=== PATIENT | male | born 1955 | race Caucasian/White ===

== ENCOUNTER 2021-02-02 12:05 | Emergency (ER) | payer MEDICARE, SELFPAY ==
--- NOTE | ~2021-02-02 | CT_ITS ---
EXAMINATION: CT brain wo con INDICATION: Confusion and memory loss COMPARISON: None TECHNIQUE: Standard unenhanced head CT. The dose-length product (DLP) was 681.00 mGy-cm. The mA was a djusted according to patient size. Iterative reconstruction technique was employed. FINDINGS: There is no intracranial hemorrhage, acute infarction, or abnormal mass lesion. The ventric les are normal. There is no abnormal mass effect or midline shift. The guo-white matter differentiat ion is normal. The basal cisterns are patent. The orbits are normal. There is essentially complete op acification of the frontal sinuses, sphenoid sinuses, right maxillary sinus, and the ethmoidal air ce lls. There is minimal opacification of left maxillary sinus. IMPRESSION: 1. No acute intracranial abnormality. 2. Pansinusitis. Reviewed, dictated and finalized at location A.
[2021-02-02 12:16] VITALS: BP 158/98; PULSE 96; RESP 16; TEMP 36.6; O2SAT 98
--- NOTE | 2021-02-02 12:19 | ECG_ITS ---
Measurements Intervals Patrick Rate: 86 P: 10 GA: 198 QRS: -10 QRSD: 104 T: 32 QT: 356 QTc: 428 Interpretive Statements SINUS RHYTHM INCOMPLETE RIGHT BUNDLE BRANCH BLOCK BORDERLINE ECG Electronically Signed On 02-03-2021 7:16:37 CDT by Juventino Gar D.O.
[2021-02-02 12:35] LABS: Basophils Absolute Auto 0.1 K/mm3 (0.0-0.1); Basophils Percent Auto 0.9 % (0.2-1.2); Eosinophils Absolute Auto 0.5 K/mm3 (0-0.3); Eosinophils Percent Auto 7.2 % (0-4.4); Hematocrit 44.7 % (42.0-52.0); Immature Granulocyte Absolute 0.02 K/mm3 (0.00-0.031); Immature Granulocyte Percent A 0.3 % (0-0.5); Lymphocytes Absolute Auto 2.15 K/mm3 (0.9-3.2); Lymphocytes Percent Auto 30.9 % (18.3-44.2); Mean Corpuscular HGB Conc 33.6 g/dl (32-36); Mean Corpuscular Hemoglobin 28.4 pg (26-34); Mean Corpuscular Volume 84.5 fl (80-100); Mean Platelet Volume 10.2 fl (7.4-10.4); Monocytes Absolute Auto 0.7 K/mm3 (0.1-0.6); Monocytes Percent Auto 9.4 % (2.6-8.5); Neutrophils Absolute Auto 3.6 K/mm3 (1.3-6.7); Neutrophils Percent Auto 51.3 % (45.5-73.1); Platelet Count Result 248 k/mm3 (150-375); Red Blood Count 5.29 M/mm3 (4.6-6.20); Red Cell Distribution Width 14.6 % (11.5-14.5)
[2021-02-02 12:50] LABS: Alanine Aminotransferase 18 U/L (4-50); Albumin Level 4.6 g/dL (3.5-5.1); Alkaline Phosphatase 55 U/L (38-126); Anion Gap 7 mmol/L (8-16); Aspartate Amino Transferase 35 U/L (17-59); Bilirubin,Total 1.1 mg/dL (0.2-1.3); Blood Urea Nitrogen 21 mg/dL (9-20); Calcium 10.1 mg/dL (8.4-10.2); Carbon Dioxide 29 mmol/L (22-30); Chloride 104 mmol/L (98-107); Estimated CRCL calculation 71 ml/min; Estimated Glomerular Filt Rate > 60; Glucose 108 mg/dL (75-110); Potassium 4.5 mmol/L (3.4-5.0); Sodium 140 mmol/L (137-145)
[2021-02-02 13:37] VITALS: BP 154/94; PULSE 81; RESP 21; O2SAT 98
--- NOTE | 2021-02-02 13:42 | PC.NURSE ---
Ambulated steady gait to room from triage, [facility] around [facility], he was asking how did we get there and could not remember things. Denies recent head trauma, denies hx confusion or blood clots. Pt currently AOx3 but stating he does not remember why he is here and looking to for prompting. Denies recent illnesses, NSR on monitor, non-labored resps
--- NOTE | 2021-02-02 14:20 | ED.GENADULT ---
HPI - General Adult General Chief complaint: Altered Mental Status Stated complaint: Short Term Memory Problems Time Seen by Provider: 02/02/21 13:35 Source: patient and family History of Present Illness HPI narrative: Patient is a 65 y/o male complaining of sudden onset memory loss. states that [facility] and patient does not recall how they got there when they were walking out of the building. He does not recall the exercise he did there. He has no headache, chest pain, SOB, focal weakness or numbness. Related Data Allergies Allergy/AdvReac Type Severity Reaction Status Date / Time No Known Allergies Allergy Unverified 02/02/21 13:45 Exam Const: General: no acute distress and well developed Orientation/consciousness: oriented to person, oriented to place, oriented to time and patient oriented x3 HENMT: Head: normocephalic Ears: external ears normal General nose exam: Normal external nose present Eyes: General: appearance normal, both eyes and all related structures Conjunctivae: conjunctivae normal Neck: Neck: normal visual inspection and full ROM Chest: Chest palpation & inspection: normal inspection of the chest and no tenderness Resp: Effort & Inspection: normal respiratory effort Auscultation: clear to auscultation bilaterally Cardio: Rate: regular rate Rhythm: regular rhythm GI: GI Palp: No abdominal tenderness and Yes Soft to palpation Skin: General skin exam: normal color and turgor normal Neuro: General: oriented to person, oriented to place, oriented to time and patient oriented x3 Cranial nerves: Yes CN's II-XII intact bilaterally Cognition (Neuro): normal cognition Speech: normal speech Motor exam (neuro): 5/5 motor strength present throughout Sensory Exam: normal sensation Coordination: [id number] test normal and [id number] test normal Extrem: General: normal to inspection, full ROM and no pedal edema Psych: Appearance: grossly normal Mental Status: mental status grossly normal Affect: normal affect Course Reevaluation(s) Reevaluation #1: Patient states he feels better and regaining some of his recent memory. He does not want to stay admitted. He wants to go home and contact his PCP for further work up. He will leave AMA. He is currently awake, oriented x 3 and competent to make medical decision for himself. He is instructed to contact PCP GALINA for further work up. Date: 02/02/21 Time: 16:40 Consultations Consultation #1: Discussed with FIBER ARTIST Crissy, who agrees to admit. Date: 02/02/21 Time: 14:25 Vital Signs Vital signs: Vital Signs Temperature 36.6 C 02/02/21 12:16 Pulse Rate 96 02/02/21 12:16 Respiratory Rate 16 02/02/21 12:16 Blood Pressure 158/98 H 02/02/21 12:16 Pulse Oximetry 98 02/02/21 12:16 Temperature 36.6 C 02/02/21 12:16 Pulse Rate 65 02/02/21 16:55 Respiratory Rate 16 02/02/21 16:55 Blood Pressure 135/82 02/02/21 16:55 Pulse Oximetry 98 02/02/21 16:55 Medical Decision Making Vital Signs Vital Signs: Vital Signs Temperature 36.6 C 02/02/21 12:16 Pulse Rate 96 02/02/21 12:16 Respiratory Rate 16 02/02/21 12:16 Blood Pressure 158/98 H 02/02/21 12:16 Pulse Oximetry 98 02/02/21 12:16 Temperature 36.6 C 02/02/21 12:16 Pulse Rate 65 02/02/21 16:55 Respiratory Rate 16 02/02/21 16:55 Blood Pressure 135/82 02/02/21 16:55 Pulse Oximetry 98 02/02/21 16:55 Lab Data Result diagrams: 02/02/21 12:28 02/02/21 12:28 Labs: Lab Results 02/02/21 02/02/21 02/02/21 Range/Units 12:28 12:28 14:31 WBC 7.0 (4.5-10.0) K/mm3 RBC 5.29 (4.6-6.20) M/mm3 Hgb 15.0 (14.0-18.0) g/dL Hct 44.7 (42.0-52.0) % MCV 84.5 (80-100) fl MCH 28.4 (26-34) pg MCHC 33.6 (32-36) g/dl RDW 14.6 H (11.5-14.5) % Plt Count 248 (150-375) k/mm3 MPV 10.2 (7.4-10.4) fl Immature Gran % (Auto) 0.3 (0-0.5) % Neut % (Auto) 51.3 (45.5-73
[2021-02-02 14:45] LABS: Add Urine Microscopic? YES; Appearance Urine Clear (Clear); Bilirubin Urine Negative (Negative); Blood Urine 2+ (Negative); Color Urine Yellow (Yellow); Glucose Urine UA Negative (Negative); Ketones Urine Negative (Negative); Leukocyte Esterase Ur Negative LEU/UL (Negative); Mucus Urine Rare /lpf; Nitrate Urine Negative (Negative); Protein Urine Negative (Negative); RBC Urine >75 /hpf (0-2); Specific Grav Ur 1.015 (1.001-1.035); Squamous Epithelial Cell Urine Rare /hpf (Few); Urobilinogen Urine Negative mg/dL (<2.0); WBC Urine 0-3 /hpf
--- NOTE | 2021-02-02 16:46 | PC.NURSE ---
Dr. Burroughs at bedside to speak with pt and re: pt does not want to be admitted
[2021-02-02 16:55] VITALS: BP 135/82; PULSE 65; RESP 16; O2SAT 98
== END 2021-02-02 17:25 | disposition left against medical advice (07) ==
PROVIDERS: Emergency Medicine; Emergency Provider Emergency Medicine
DX: G45.4 Transient global amnesia (principal); I45.10 Unspecified right bundle-branch block
CPT/HCPCS: 36415; 70450; 80053; 81001; 85025; 93005; 99284

== ENCOUNTER 2021-07-22 14:02 | Inpatient (IN) | payer MEDICARE, SELFPAY ==
[2021-07-22] VITALS (27 sets, daily range): BP systolic 95–148; BP diastolic 71–103; PULSE 108–140; RESP 16–42; O2SAT 60–98
--- NOTE | ~2021-07-22 | XR_ITS ---
EXAMINATION: XR chest 1V portable INDICATION: Pneumothorax TECHNIQUE: Portable AP chest at 0756 hours COMPARISON: 07/22/2021 FINDINGS: A left-sided chest tube is again noted. A small left left apical pneumothorax persists but has decreased in size. The small right pneumothorax identified on CT is not seen. Diffuse airspace op acities persist throughout all lung zones without significant change. There is no pleural effusion. T here is widespread pneumomediastinum and subcutaneous emphysema involving the chest wall and neck. IMPRESSION: 1. Small left apical pneumothorax with decrease in size. 2. Diffuse lung disease, consistent with COVID 19 pneumonia. 3. Widespread pneumomediastinum and subcutaneous emphysema. Reviewed, dictated and finalized at location A. GER PATHOLOGY
--- NOTE | ~2021-07-22 | CT_ITS ---
EXAMINATION: CTA chest PE protocol EXAM DATE: 07/22/2021 15:59 INDICATION: covid worsening hypoxia. TECHNIQUE: Spiral CTA of the chest (pulmonary arteries) was performed with 100 cc Omnipaque 350 intr avenous contrast injection. Images were acquired during the pulmonary arterial phase. Coronal maxi mum intensity projection 3D-reconstructions were created by the technologist on dedicated workstation . Axial, coronal and sagittal reformatted images were reviewed. The dose-length product (DLP) for t his examination was 1051.18 mGy-cm. The exposure was tailored according to patient size (auto mA ex posure control), and iterative reconstruction (ASIR) was used as additional dose reduction technique. There is no prior study for comparison. FINDINGS: Large amount of right-sided interlobar and multi segmental pulmonary emboli with evidence of right he art strain. No left pulmonary emboli. No thoracic adenopathy or aortic dissection. Moderate size left pneumothorax. Small right apical pneumothorax. Massive amount of pneumomediastinum. Moderate amount of bilateral airspace disease consistent with subacute COVID pneumonia. I discussed these findings with ER Edison Vizcarra at 07/22/2021 16:08 CONCRETE POURER. IMPRESSION: 1. Large amount of right pulmonary embolism, right heart strain. 2. Moderate left, small right pneumothoraces. 3. Massive pneumomediastinum. 4. Moderate bilateral subacute COVID pneumonia. Reviewed, dictated and finalized at location A. RETE POURER
--- NOTE | ~2021-07-22 | XR_ITS ---
EXAMINATION: XR chest 1V portable EXAM DATE: 07/26/2021 06:35 INDICATION: Pneumothorax, pneumomediastinum, COVID pneumonia. Pulmonary embolism. TECHNIQUE: Portable AP frontal chest x-ray was obtained. Comparison is made to prior examination from 07/25/2021. FINDINGS: Small calibered left-sided chest tube. No evidence of pneumothorax on this exam. Some gas w ithin the neck soft tissues and mediastinum. Diffuse bilateral airspace disease worse on the left cordelia e, appearance consistent with COVID pneumonia. No sizable pleural effusion. Mild cardiomegaly. IMPRESSION: 1. Diffuse COVID pneumonia left more than right. 2. Chest tube in position without pneumothorax identified. 3. Pneumomediastinum. Reviewed, dictated and finalized at location B. ROUTER
--- NOTE | ~2021-07-22 | XR_ITS ---
EXAMINATION: XR chest 1V portable INDICATION: Pneumothorax and pneumomediastinum, COVID 19 pneumonia TECHNIQUE: Portable AP chest at 0531 hours COMPARISON: 07/23/2021 FINDINGS: A left-sided chest tube is unchanged in position. No definite persistent left pneumothorax is identified. Diffuse airspace opacities persist without significant change. There is no pleural eff usion. The heart size is normal. Pneumomediastinum and widespread subcutaneous persists with slight i mprovement. IMPRESSION: 1. No definite left pneumothorax identified. 2. Diffuse lung disease, consistent with COVID 19 pneumonia. 3. Pneumomediastinum and widespread subcutaneous emphysema with slight improvement. Reviewed, dictated and finalized at location A. CONDUCTOR PACKAGES PLATEMAKER IMPRESSION: 1. No definite left pneumothorax identified. 2. Diffuse lung disease, consistent with COVID 19 pneumonia. 3. Pneumomediastinum and widespread subcutaneous emphysema with slight improvem ent.
--- NOTE | ~2021-07-22 | XR_ITS ---
EXAMINATION: XR chest 1V portable INDICATION: Pneumothorax, pneumomediastinum, COVID pneumonia TECHNIQUE: Portable AP chest at 0547 hours COMPARISON: 07/24/2021 FINDINGS: The left-sided chest tube is unchanged in position. No persistent pneumothorax is identifie d. Pneumomediastinum and widespread subcutaneous emphysema persists but continues to improve. Airspac e opacities of the left lung persist without significant change. There are improving airspace opaciti es of the right lung. The cardiomediastinal silhouette is stable. IMPRESSION: 1. Diffuse lung disease with improvement on the right, consistent with COVID 19 pneumonia. 2. No definite left pneumothorax identified. 3. Pneumomediastinum and widespread subcutaneous emphysema with continued improvement. Reviewed, dictated and finalized at location A. NG CONSULTANT IMPRESSION: 1. Diffuse lung disease with improvement on the right, consistent with COVID 19 pneumonia. 2. No definite left pneumothorax identified. 3. Pneumomediastinum and widespread subcutaneous emphysema with continued impro vement.
--- NOTE | ~2021-07-22 | XR_ITS ---
EXAMINATION: XR chest 1V portable EXAM DATE: 07/26/2021 14:07 INDICATION: L PTX s/p CT removal . TECHNIQUE: Portable AP frontal chest x-ray was obtained. Comparison is made to prior examination from earlier same date. FINDINGS: Left-sided chest tube has been removed. There is some gas in the left axilla. There is some pneumomediastinum. No pleural reflection, no evidence of recurrent pneumothorax. Diffuse COVID pneumonia unchanged. No sizable pleural effusion. Mild cardiomegaly. There are mild bon y degenerative changes. IMPRESSION: 1. No evidence of recurrent pneumothorax following left chest tube removal. 2. Diffuse COVID pneumonia unchanged. Reviewed, dictated and finalized at location B. TO PULPER OPERATOR
--- NOTE | ~2021-07-22 | XR_ITS ---
EXAMINATION: XR chest 1V portable DATE: 08/02/2021 06:07 INDICATION: Shortness of breath. TECHNIQUE: A single frontal view of the chest was obtained. COMPARISON: Chest single view 07/28/2021 FINDINGS: There are airspace opacities in all lung zones bilaterally, left worse than right. No pleur al effusion or pneumothorax. The heart size is normal. IMPRESSION: 1. Diffuse lung disease with mild worsening on the right, consistent with COVID-19 pneumonia. Reviewed, dictated and finalized at location A. DESK TROUBLE LOCATOR IMPRESSION: 1. Diffuse lung disease with mild worsening on the right, consistent with COVID -19 pneumonia.
--- NOTE | ~2021-07-22 | XR_ITS ---
EXAMINATION: XR chest-chest tube insert/pos EXAM DATE: 07/22/2021 19:16 INDICATION: Bilateral pneumothoraces, pneumomediastinum, pulmonary emboli, COVID pneumonia. TECHNIQUE: Portable AP frontal chest x-ray was obtained. Correlation is made to psychiatric specialist image from CT s can performed earlier same date. FINDINGS: There is a chest tube projecting over the left hemithorax, probably within the pleural cavi ty. There is a moderate left-sided pneumothorax, either stable or minimally improved (no direct x-ray comparison). Can't identify the small right apical pneumothorax or pulmonary embolism seen on CT. Extensive pneumomediastinum, subcutaneous gas. Diffuse COVID pneumonia. IMPRESSION: 1. Left chest tube projecting over pleural cavity. Moderate left pneumothorax, stable or minimally i mproved. 2. Small right apical pneumothorax not well visualized. 3. Diffuse COVID pneumonia. 4. Pneumomediastinum. Reviewed, dictated and finalized at location A. R SYSTEMS OPERATIONS SPECIALIST IMPRESSION: 1. Left chest tube projecting over pleural cavity. Moderate left pneumothorax, stable or minimally improved. 2. Small right apical pneumothorax not well visualized. 3. Diffuse COVID pneumonia. 4. Pneumomediastinum.
--- NOTE | ~2021-07-22 | XR_ITS ---
XR chest 1V portable 08/02/2021 15:28 Indication: Pneumonia Procedure: AP portable chest Comparison: Comparison to multiple prior studies sequentially, with oldest reviewed study dated 07/14. Findings: Patchy bilateral airspace disease. No pleural effusion or pneumothorax. Heart size normal. No acute osseous abnormality. Impression: 1: Patchy bilateral airspace disease, compatible with pneumonia. Reviewed, dictated and finalized at location A. ACTORY TECHNICIAN Impression: 1: Patchy bilateral airspace disease, compatible with pneumonia.
--- NOTE | ~2021-07-22 | XR_ITS ---
EXAMINATION: XR chest 1V portable DATE: 07/27/2021 08:52 INDICATION: Pneumothorax. TECHNIQUE: A single frontal view of the chest was obtained. COMPARISON: Chest single view 07/26/2021, chest CT 07/22/2021 FINDINGS: There are patchy airspace opacities in the lungs bilaterally. No pleural effusion or pneumo thorax. There is gas in left chest wall with interval improvement. IMPRESSION: 1. No pneumothorax. 2. Stable diffuse lung disease, consistent with COVID-19 pneumonia. Reviewed, dictated and finalized at location A. NUT COOKER
--- NOTE | ~2021-07-22 | XR_ITS ---
EXAMINATION: XR chest 1V portable INDICATION: Pneumothorax and pneumomediastinum TECHNIQUE: Portable AP chest at 0553 hours COMPARISON: 07/27/2021 FINDINGS: No pneumothorax is identified. A small amount of gas in the left chest wall persists but co ntinues to decrease. There is minimal persistent pneumomediastinum. Diffuse interstitial and airspace opacities persist without significant change. There is no pleural effusion or pneumothorax. The hear t size is normal. IMPRESSION: 1. No pneumothorax identified. 2. Stable diffuse lung disease, consistent with COVID 19 pneumonia. Reviewed, dictated and finalized at location A. [facility] SPREADER
--- NOTE | 2021-07-22 14:07 | PC.NURSE ---
[address] at 15l NRB with sats in the low 80's.
--- NOTE | 2021-07-22 14:13 | ECG_ITS ---
Measurements Intervals Gile Rate: 121 P: 17 NM: 154 QRS: -15 QRSD: 114 T: 32 QT: 354 QTc: 504 Interpretive Statements SINUS TACHYCARDIA INCOMPLETE RIGHT BUNDLE BRANCH BLOCK DELAYED PRECORDIAL R/S TRANSITION NONSPECIFIC ST & T-WAVE ABNORMALITY- ANTEROLAT/HIGH LAT LEADS BASELINE ARTIFACT- II, III, AVL, AVF, V2-V6 ABNORMAL ECG Electronically Signed On 07-23-2021 16:04:27 INVESTIGATION OFFICER by Juventino Gar D.O.
--- NOTE | 2021-07-22 14:15 | PC.NURSE ---
Placed on bipap with spo2 92%.
[2021-07-22 14:20] LABS: Alveolar/Arterial O2 Gradient 497.5 mmHg; Base Excess ABG -3.9 mEq/l (+/-2.0); Fractional Inspired Oxygen 80 %; HCO3 ABG 19.7 mEq/l (22.0-26.0); Oxygen Content ABG 15.2 %vol (16.0-22.0); PCO2 ABG 32.1 mmHg (35.0-45.0); PO2 FiO2 Ratio Arterial Blood 0.49 %; pH ABG 7.405 (7.350-7.450)
[2021-07-22 14:21] LABS: Oxyhemoglobin 72.3 % THb (90.0-100.0); PO2 ABG 39.2 mmHg (80.0-100.0)
[2021-07-22 14:22] LABS: Device NON-REBREATHER MASK; Modified Allen's Test Pass; Oxygen Saturation ABG 74.9 % (95.0-100.0); Site Drawn RIGHT RADIAL
[2021-07-22] MEDS: SODIUM CHLORIDE 0.9% IV 1,000 ML 999 ML IV CONT ×2 (14:49→21:13)
--- NOTE | 2021-07-22 14:50 | PC.NURSE ---
CPAP in place at 80% 02 and rate of 24. SPO2 97% with cpap.
[2021-07-22 14:55] LABS: Basophils Absolute Auto 0.1 K/mm3 (0.0-0.1); Basophils Percent Auto 0.3 % (0.2-1.2); Hematocrit 47.8 % (42.0-52.0); Hemoglobin 15.5 g/dL (14.0-18.0); Immature Granulocyte Absolute 0.63 K/mm3 (0.00-0.031); Immature Granulocyte Percent A 2.7 % (0-0.5); Lymphocytes Absolute Auto 1.48 K/mm3 (0.9-3.2); Lymphocytes Percent Auto 6.4 % (18.3-44.2); Mean Corpuscular HGB Conc 32.4 g/dl (32-36); Mean Corpuscular Hemoglobin 27.8 pg (26-34); Mean Corpuscular Volume 85.7 fl (80-100); Mean Platelet Volume 11.8 fl (7.4-10.4); Monocytes Absolute Auto 1.2 K/mm3 (0.1-0.6); Monocytes Percent Auto 5.3 % (2.6-8.5); Neutrophils Absolute Auto 19.8 K/mm3 (1.3-6.7); Neutrophils Percent Auto 85.3 % (45.5-73.1); Platelet Count Result 262 k/mm3 (150-375); Red Blood Count 5.58 M/mm3 (4.6-6.20); Red Cell Distribution Width 14.6 % (11.5-14.5); White Blood Count 23.2 K/mm3 (4.5-10.0)
[2021-07-22 15:24] LABS: Alanine Aminotransferase 131 U/L (4-50); Albumin Level 4.2 g/dL (3.5-5.1); Alkaline Phosphatase 109 U/L (38-126); Anion Gap 15 mmol/L (8-16); Aspartate Amino Transferase 84 U/L (17-59); Bilirubin,Total 1.7 mg/dL (0.2-1.3); Blood Urea Nitrogen 22 mg/dL (9-20); Calcium 9.7 mg/dL (8.4-10.2); Carbon Dioxide 23 mmol/L (22-30); Chloride 95 mmol/L (98-107); Estimated CRCL calculation 74 ml/min; Estimated Glomerular Filt Rate > 60; Glucose 232 mg/dL (65-110); Magnesium 2.2 mg/dL (1.6-2.3); Potassium 4.1 mmol/L (3.4-5.0); Sodium 133 mmol/L (137-145)
[2021-07-22 15:25] LABS: Lactic Acid Reflex 3.9 mmol/L (0.7-2.1)
[2021-07-22 16:58] LABS: Add Urine Microscopic? YES; Appearance Urine Clear (Clear); Bilirubin Urine Negative (Negative); Blood Urine Negative (Negative); Color Urine Yellow (Yellow); Glucose Urine UA Negative (Negative); Ketones Urine Negative (Negative); Leukocyte Esterase Ur Negative LEU/UL (Negative); Mucus Urine Rare /lpf; Nitrate Urine Negative (Negative); Protein Urine Negative (Negative); RBC Urine 0-2 /hpf (0-2); Specific Grav Ur 1.021 (1.001-1.035); WBC Urine 0-3 /hpf
[2021-07-22 17:48] LABS: Reflex Lactic Acid Yes or No Add Lactic
[2021-07-22 18:18] LABS: Lactic Acid 2.3 mmol/L (0.7-2.1)
--- NOTE | 2021-07-22 18:45 | PC.NURSE ---
Chest tube placed to left lung. Tolerated well.
[2021-07-22 19:21] LABS: NT Pro B Type Natriuretic Pept 116 pg/mL (5-100); Troponin I 0.164 ng/mL (0.000-0.034)
--- NOTE | 2021-07-22 19:33 | PC.NURSE ---
assumed care of patient left anterior chest tube 10ml bloody drainage Bipap dcd on 15l high flow O2
--- NOTE | 2021-07-22 19:47 | ED.SOB ---
HPI - SOB/Dyspnea General Chief Complaint: Shortness of Breath/Dyspnea Stated Complaint: respiratory distress Time Seen by Provider: 07/22/21 14:10 Source: patient and EMS History of Present Illness HPI Narrative: Patient presents with redness of breath. Diagnosed with Covid on 07/13 has been doing well at home today had sudden onset of shortness of breath and called EMS. Patient noted to be hypoxic to the 60s and 70s he had increased work of breathing EMS team attempted BVM with minimal improvement. Patient is brought to the ER for further evaluation. Additional history obtained. Patient reported diffuse chest pain worse with deep inspiration, achy, radiates across his chest. Denies any nausea vomiting or diarrhea Related Data Home Medications Medication Instructions Recorded Confirmed No Home Medications 07/22/21 07/22/21 Allergies Allergy/AdvReac Type Severity Reaction Status Date / Time No Known Allergies Allergy Verified 07/22/21 14:09 Review of Systems Review of Systems: CONSTITUTIONAL: Denies fever, chills, or sweats. EYES: Denies visual changes, redness, or discharge. ENT: Denies rhinorrhea, congestion, sore throat, or otalgia. CARDIOVASCULAR: Denies palpitations, or edema. RESPIRATORY: Reports shortness of breath and cough GASTROINTESTINAL: Denies abdominal pain, nausea, vomiting, or diarrhea. GENITOURINARY: Denies dysuria or hematuria. SKIN: Denies rash or itching. MUSCULOSKELETAL: Denies back pain, joint pain, or myalgia. NEUROLOGIC: Denies headache, numbness, dizziness, or weakness. PSYCHIATRIC: Denies anxiety or depression. All systems reviewed & are unremarkable except as noted in HPI and below PMFSH Past Medical History Medical History (Updated 07/22/21 @ 20:50 by Alex Nelson MD) Patient denies significant medical history Social History Social History (Updated 07/22/21 @ 20:22 by Alex Nelson MD) Substance use: never Exam Narrative: GENERAL: Well-appearing, well-nourished, and in no acute distress. HEAD: Normocephalic, atraumatic. EYES: PERRLA and EOMI. ENT: Nares clear, no rhinorrhea or epistaxis. Mucous membranes moist. Crepitus noted with palpation of the neck NECK: Supple. No masses. No JVD CHEST: Increased respiratory effort, clear to auscultation bilaterally, HEART: Regular rate and rhythm. No murmur heard. Normal peripheral pulses. ABDOMEN: Soft, nontender, nondistended, normal active bowel sounds. EXTREMITIES: Normal range of motion. No edema. SKIN: Warm, dry, no rash. NEURO: No focal deficits. Alert and oriented x3. PSYCH: Normal mood and affect. Course Reevaluation(s) Reevaluation #1: Patient is resting comfortably is tolerated chest tube well feels his breathing is improving. Date: 07/22/21 Time: 20:34 Consultations Consultation #1: Discussed case with herpetology teacher hospitalist and general surgery patient will be admitted for further management Date: 07/22/21 Time: 20:34 Vital Signs Vital signs: Vital Signs Pulse Rate 124 H 07/22/21 14:00 Respiratory Rate 42 H 07/22/21 14:00 Blood Pressure 148/103 H 07/22/21 14:00 Pulse Oximetry 77 L 07/22/21 14:00 Pulse Rate 108 H 07/22/21 22:05 Respiratory Rate 24 H 07/22/21 22:05 Blood Pressure 131/88 07/22/21 21:15 Pulse Oximetry 95 07/22/21 22:05 Procedures Chest Tube Chest Tube 1: Chest Tube Date: 07/22/21 Chest Tube Time: 19:20 Chest Tube Location: left and other Tube Type: quik thal Anesthetic: lidocaine 1% and with epi Incision Made With: #11 blade Procedure: seldinger technique Post Procedure: sterile dressing applied and connected to Pluero Vac Tube Drainage: bernardo of air Post Procedure CXR?: Yes Post Procedure: post CXR reviewed, placement appropriate and pneumo persistent Patient Tolerated Procedure: Yes MDM - SOB/Dyspnea MDM Narrative Medical decision making narrative: Patient diagnosed with Co
[2021-07-22 19:55] LABS: Alanine Aminotransferase 106 U/L (4-50); Estimated CRCL calculation 90 ml/min; Estimated Glomerular Filt Rate > 60; INR 1.1; Prothrombin Time 13.9 Seconds (11.1-14.7)
--- NOTE | 2021-07-22 20:06 | PM.IMHP ---
H&P: HPI History of Present Illness Date/Time: 07/22/21 20:06 Chief Complaint: Shortness of breath. Narrative: This is a 66 year with no significant past medical history he presented to the emergency room via EMS after patient was suddenly short of breath he tested positive for COVID 2 weeks ago patient was managing at home was doing fairly well up until this event. Upon EMS arrival patient was found to have an oxygen saturation of 60-70% on room air and bag valve maneuver was tried with no improvement. Upon arrival to the emergency room patient was found to have acute tension pneumothorax on initial chest x-ray. A chest tube was placed and hooked up to water seal. Further workup was significant for CT PE protocol with large amount of right pulmonary embolism, right heart strain,moderate left, small right pneumothoraces,massive pneumomediastinum,moderate bilateral subacute COVID pneumonia. At the time of my visit patient stated that he was feeling slightly better but still with shortness of breath and some pain, patient prior to coming to the hospital also experienced chills, fevers, body aches and pains, muscle pain, poor appetite, shortness of breath ,dry cough, persistent. Patient is being admitted however awaiting bed at tertiary center. Review of Systems Review of Systems: Shortness of breath, persistent cough, chest pain. Constitutional: Constitutional: Reports chills, Reports fatigue, Reports fever(s), Reports malaise and Reports poor appetite Eyes: Eyes: Denies change in vision ENT: Denies dysphagia, Denies nasal congestion, Denies nasal discharge, Denies nasal obstruction and Denies odynophagia Cardiovascular: Cardiovascular: Reports chest pain, Denies leg edema, Denies radiating jaw, neck or arm pain, Denies palpitations, Reports dyspnea, Reports dyspnea on exertion and Denies orthopnea Respiratory: Respiratory: Denies change in phlegm color, Reports cough, Denies excessive phlegm production and Reports dyspnea Gastrointestinal: Gastrointestinal: Denies abdominal pain, Denies dyspepsia, Denies heartburn, Denies diarrhea, Denies nausea and Denies vomiting Genitourinary: Genitourinary: Reports no additional male genitourinary complaints, Reports as per HPI, Denies dysuria and Denies flank pain Musculoskeletal: Musculoskeletal: Reports myalgias Integumentary/Breasts: Skin/Breast: Denies rash Neurologic: Denies focal weakness and Denies Sensory deficit (Neuro) Psychiatric: Psychiatric: Reports no additional psychiatric complaints and Reports as per HPI Endocrine: Endocrine: Reports no additional endocrine complaints and Reports as per HPI Hematologic/Lymphatic: Hematologic/Lymphatic: Reports no additional hematologic/lymphatic complaints and Reports as per HPI Allergic/Immunologic: Allergic/Immunologic: Reports no additional allergic/immunologic complaints and Reports as per HPI [facility] Past Medical History Medical History (Updated 07/23/21 @ 03:05 by Mildrde Arana MD) Patient denies significant medical history Social History Social History (Updated 07/22/21 @ 20:22 by Alex Nelson MD) Smoking status: Never smoker Second hand tobacco smoke exposure: No Alcohol intake: never Substance use: never Substance use type: does not use Spiritual care concerns: No Meds Home Medications and Allergies Home Medications Medication Instructions Recorded Confirmed Type No Home Medications 07/22/21 07/22/21 History Allergies Allergy/AdvReac Type Severity Reaction Status Date / Time No Known Allergies Allergy Verified 07/22/21 14:09 Vital Signs Vital Signs - 24 hr 07/22/21 14:00 07/22/21 14:11 07/22/21 14:13 Pulse Rate 124 H 125 H Respiratory Rate 42 H 31 H Blood Pressure 148/103 H Pulse Oximetry 77 L 82 L 81 L 07/22/21 14:15 07/22/21 14:16 07/22/21 14:20 Pulse Rate 123 H 123 H 117 H Respiratory Rate 25 H 26 H 30 H Blood Pressure 111/76 Pulse Oximetry 81 L 90 94
[2021-07-22] MEDS: HEPARIN SODIUM 5,000 UNITS/ML VIAL 7000 UNITS IV PUSH (20:47)
[2021-07-22] MEDS: REMDESIVIR 200 MG/NS 250 ML 200 MG/250 ML BAG 250 MG IVPB (20:50)
[2021-07-22 20:53] LABS: INR 1.1; Prothrombin Time 14.3 Seconds (11.1-14.7)
[2021-07-22 20:54] LABS: Partial Thromboplastin Time 30.3 SECONDS (22.3-36.8)
[2021-07-22] MEDS: HEPARIN SOD/D5W 100 UNITS/ML 25,000 UNITS/250 ML BAG 15 UNITS IV CONT (20:59)
[2021-07-22 21:02] LABS: Basophils Absolute Auto 0.1 K/mm3 (0.0-0.1); Basophils Percent Auto 0.3 % (0.2-1.2); Hematocrit 46.6 % (42.0-52.0); Hemoglobin 15.1 g/dL (14.0-18.0); Immature Granulocyte Absolute 0.48 K/mm3 (0.00-0.031); Immature Granulocyte Percent A 2.5 % (0-0.5); Lymphocytes Absolute Auto 0.69 K/mm3 (0.9-3.2); Lymphocytes Percent Auto 3.5 % (18.3-44.2); Mean Corpuscular HGB Conc 32.4 g/dl (32-36); Mean Corpuscular Hemoglobin 27.9 pg (26-34); Mean Corpuscular Volume 86.1 fl (80-100); Mean Platelet Volume 11.1 fl (7.4-10.4); Monocytes Absolute Auto 0.4 K/mm3 (0.1-0.6); Monocytes Percent Auto 2.1 % (2.6-8.5); Neutrophils Absolute Auto 17.9 K/mm3 (1.3-6.7); Neutrophils Percent Auto 91.6 % (45.5-73.1); Platelet Count Result 219 k/mm3 (150-375); Red Blood Count 5.41 M/mm3 (4.6-6.20); Red Cell Distribution Width 14.6 % (11.5-14.5); White Blood Count 19.5 K/mm3 (4.5-10.0)
[2021-07-22] MEDS: SODIUM CHLORIDE 0.9% IV 1,000 ML 125 ML IV CONT (22:13)
--- NOTE | 2021-07-22 22:58 | PC.NURSE ---
attempted to call icu nurse will call back
[2021-07-23] VITALS (18 sets, daily range): BP systolic 93–136; BP diastolic 63–89; PULSE 85–106; RESP 22–31; TEMP 36.2–36.9; O2SAT 15–100; BMI 30.3
--- NOTE | 2021-07-23 00:10 | ADMGEN ---
This patient, Facundo Irvin, was admitted to Intensive Care Unit-3. Patient/family oriented to hospital policies and general routines including ID bracelet, bed and alarms, visiting hours, pain management, procedures, bathroom and other care routines, personal items, smoking policy, room service/diet, and visiting hours. Information on how to activate the Rapid Response Team has been discussed. Patient/Family are encouraged to report perceived risks to care and to ask questions if they do not understand what they are told or what they should do.
[2021-07-23 04:59] LABS: Basophils Percent Auto 0.1 % (0.2-1.2); Hematocrit 40.9 % (42.0-52.0); Hemoglobin 13.6 g/dL (14.0-18.0); Immature Granulocyte Absolute 0.34 K/mm3 (0.00-0.031); Immature Granulocyte Percent A 2.1 % (0-0.5); Lymphocytes Absolute Auto 0.91 K/mm3 (0.9-3.2); Lymphocytes Percent Auto 5.6 % (18.3-44.2); Mean Corpuscular HGB Conc 33.3 g/dl (32-36); Mean Corpuscular Hemoglobin 27.8 pg (26-34); Mean Corpuscular Volume 83.5 fl (80-100); Mean Platelet Volume 11.3 fl (7.4-10.4); Monocytes Absolute Auto 1.2 K/mm3 (0.1-0.6); Monocytes Percent Auto 7.2 % (2.6-8.5); Neutrophils Absolute Auto 13.8 K/mm3 (1.3-6.7); Platelet Count Result 217 k/mm3 (150-375); Red Cell Distribution Width 14.5 % (11.5-14.5); White Blood Count 16.2 K/mm3 (4.5-10.0)
[2021-07-23 05:13] LABS: INR 1.2; Prothrombin Time 15.4 Seconds (11.1-14.7)
[2021-07-23 05:15] LABS: Alanine Aminotransferase 93 U/L (4-50); Estimated CRCL calculation 100 ml/min; Estimated Glomerular Filt Rate > 60
[2021-07-23] MEDS: ALBUTEROL SULFATE (*SP) INHALER 2 PUFF INHALATION ×4 (05:55→20:43)
[2021-07-23 08:08] LABS: Lactic Acid Reflex 1.4 mmol/L (0.7-2.1)
[2021-07-23 08:10] LABS: Alanine Aminotransferase 104 U/L (4-50); Albumin Level 3.2 g/dL (3.5-5.1); Alkaline Phosphatase 77 U/L (38-126); Anion Gap 8 mmol/L (8-16); Aspartate Amino Transferase 58 U/L (17-59); Bilirubin,Total 0.9 mg/dL (0.2-1.3); Blood Urea Nitrogen 16 mg/dL (9-20); Calcium 8.9 mg/dL (8.4-10.2); Carbon Dioxide 24 mmol/L (22-30); Chloride 104 mmol/L (98-107); Estimated CRCL calculation 90 ml/min; Estimated Glomerular Filt Rate > 60; Glucose 122 mg/dL (65-110); Magnesium 2.3 mg/dL (1.6-2.3); Phosphorus 3.2 mg/dL (2.5-4.5); Potassium 4.7 mmol/L (3.4-5.0); Sodium 136 mmol/L (137-145)
--- NOTE | 2021-07-23 09:04 | PM.CNGS ---
Assessment and Plan Assessment and plan (1) Pneumothorax: Qualifiers: Pneumothorax type: spontaneous, secondary Qualified Code(s): J93.12 - Secondary spontaneous pneumothorax Code(s): J93.9 - Pneumothorax, unspecified Status: Acute Assessment and Plan: Chest x-ray this morning shows improved left pneumothorax, continue chest tube to suction (2) Pneumonia due to 2019 novel coronavirus: Code(s): U07.1 - COVID-19; J12.82 - Pneumonia due to coronavirus disease 2019 Status: Acute Assessment and Plan: continue supportive care per assistant toddler teacher team (3) Pulmonary embolism: Qualifiers: Acute cor pulmonale presence: unspecified Chronicity: acute Pulmonary embolism type: unspecified Qualified Code(s): I26.99 - Other pulmonary embolism without acute cor pulmonale Code(s): I26.99 - Other pulmonary embolism without acute cor pulmonale Status: Acute Assessment and Plan: continue management per assistant toddler teacher team History of Present Illness Consult details Consult date: 07/23/21 Reason for consult: chest tube Requesting physician: Mildred Arana MD Narrative: The patient is a 66-year-old male that presented to the emergency department with respiratory distress. The patient had been tested positive for COVID approximately 2 weeks ago. The patient had been doing fairly well at home, however began to have worsening respiratory failure. Workup in the emergency department, including imaging, is significant for right pulmonary embolism, moderate left pneumothorax, small right pneumothorax, and pneumomediastinum. A small chest tube was placed in the emergency department. The patient has been since transferred to the ICU for further care. Of note, all history is obtained via chart as patient is on non-rebreather. Review of Systems Review of Systems: ROS unobtainable: Yes unobtainable due to medical condition PMFSH Past Medical History Medical History Patient denies significant medical history Social History Social History Smoking status: Never smoker Second hand tobacco smoke exposure: No Alcohol intake: never Substance use: never Substance use type: does not use Spiritual care concerns: No Meds Home Medications and Allergies Home Medications Medication Instructions Recorded Confirmed Type No Home Medications 07/22/21 07/22/21 History Allergies Allergy/AdvReac Type Severity Reaction Status Date / Time No Known Allergies Allergy Verified 07/22/21 14:09 Vital Signs Vital Signs - 24 hr 07/22/21 14:00 07/22/21 14:11 07/22/21 14:13 Temperature Pulse Rate 124 H 125 H Respiratory Rate 42 H 31 H Blood Pressure 148/103 H Pulse Oximetry 77 L 82 L 81 L 07/22/21 14:15 07/22/21 14:16 07/22/21 14:20 Temperature Pulse Rate 123 H 123 H 117 H Respiratory Rate 25 H 26 H 30 H Blood Pressure 111/76 Pulse Oximetry 81 L 90 94 07/22/21 14:30 07/22/21 15:04 07/22/21 16:42 Temperature Pulse Rate 117 H 118 H 136 H Respiratory Rate 28 H 29 H 32 H Blood Pressure 105/84 Pulse Oximetry 95 97 92 07/22/21 18:43 07/22/21 18:52 07/22/21 19:00 Temperature Pulse Rate 125 H 124 H 140 H Respiratory Rate 28 H 21 H 22 H Blood Pressure Pulse Oximetry 07/22/21 19:21 07/22/21 19:23 07/22/21 20:00 Temperature Pulse Rate 115 H 114 H Respiratory Rate 24 H 27 H Blood Pressure 97/78 L 95/71 L Pulse Oximetry 60 L 98 96 07/22/21 20:07 07/22/21 20:18 07/22/21 20:20 Temperature Pulse Rate 119 H Respiratory Rate 26 H Blood Pressure Pulse Oximetry 92 96 94 07/22/21 20:30 07/22/21 20:31 07/22/21 20:46 Temperature Pulse Rate 116 H 116 H 115 H Respiratory Rate 27 H 29 H 30 H Blood Pressure 104/78 Pulse Oximetry 95 94 07/22/21 21:01 07/22/21 21:15 07/22/21 21:31
[2021-07-23 09:20] LABS: Glucose Point of Care 111 mg/dl (65-105)
--- NOTE | 2021-07-23 09:21 | WPDCNINT ---
Assessment and Plan Assessment and plan (1) Acute respiratory failure with hypoxia: Code(s): J96.01 - Acute respiratory failure with hypoxia Status: Acute Assessment and Plan: acute hypoxic respiratory failure can be multifactorial, likely due to pneumothorax, pneumomediastinum, pulmonary embolism, COVID pneumonia - CTA chest x-ray reviewed - patient has a left-sided chest tube with small left apical pneumothorax with decrease in size on chest x-ray this morning, appreciate surgery managing the chest tube - patient currently on CPAP, BiPAP of 8 in 60% FiO2, transition to high-flow therapy to minimize any increase in pneumomediastinum and/or pneumothorax - patient complaining of cough, will add guaifenesin and Tessalon Perle - continue bronchodilators (2) Pneumonia due to 2019 novel coronavirus: Code(s): U07.1 - COVID-19; J12.82 - Pneumonia due to coronavirus disease 2018 Status: Acute Assessment and Plan: COVID-19 positive on 07/13/2021: - continue remdesivir, dexamethasone - will add baricitinib (3) Pulmonary embolism: Qualifiers: Acute cor pulmonale presence: unspecified Chronicity: acute Pulmonary embolism type: unspecified Qualified Code(s): I26.99 - Other pulmonary embolism without acute cor pulmonale Code(s): I26.99 - Other pulmonary embolism without acute cor pulmonale Status: Acute Assessment and Plan: chest CTA showed large amount of right pulmonary embolism with right heart strain - patient on heparin infusion - echocardiogram has been done and pending results - cardio has been consulted (4) Pneumothorax: Qualifiers: Pneumothorax type: spontaneous, secondary Qualified Code(s): J93.12 - Secondary spontaneous pneumothorax Code(s): J93.9 - Pneumothorax, unspecified Status: Acute Assessment and Plan: tension pneumothorax likely related to COVID pneumonia/ spontaneous tension pneumothorax causing significant amount of hypoxia - patient is hemodynamically stable - has a left-sided chest tube, surgery to monitor and manage - left-sided small apical pneumothorax with decrease in size on chest x-ray this morning, will continue to monitor (5) Acquired pneumomediastinum: Code(s): J98.2 - Interstitial emphysema Status: Acute Assessment and Plan: Pneumomediastinum likely related to COVID pneumonia, pneumothorax -left-sided chest tube in place -continue to monitor pneumomediastinum and subcutaneous emphysema (6) Elevated troponin: Code(s): R77.8 - Other specified abnormalities of plasma proteins Status: Acute Assessment and Plan: Likely related to large amount of pulmonary embolism with right heart strain -proBNP of 116 -cardiology has been consulted (7) Elevated lactic acid level: Code(s): R79.89 - Other specified abnormal findings of blood chemistry Status: Acute Assessment and Plan: Elevated lactic acid likely related to hypoxia -repeat lactic acid this morning is 1.4, resolved Additional Plan Discussed with patient updated with his condition and plan of care. Will switch CPAP to high-flow therapy. Continue to monitor O2 sats. Code status: Full code Critical care time spent: 44 minutes This dictation may have been done utilizing a voice recognition system. Attempts have been made to correct errors. However, there may be uncorrected grammatical, spelling, and recognition errors present. Due to a high probability of clinically significant, life threatening deterioration, the patient required my highest level of preparedness to intervene emergently and I personally spent this critical care time directly and personally managing the patient. This critical care time included obtaining a history; examining the patient; pulse oximetry; ordering and review of studies; arranging urgent treatment with development of a management plan; evaluation of patient's response to ceferino
[2021-07-23 10:21] LABS: Aspartate Amino Transferase 57 U/L (17-59)
[2021-07-23] MEDS: UMECLIDINIUM BROMIDE 62.5 MCG ELLIPTA 1 PUFF INHALATION (10:26)
[2021-07-23] MEDS: guaiFENesin/DEXTROMETHORPHAN 10 ML UDC PO ×4 (11:53→22:20)
[2021-07-23] MEDS: BARICITINIB 2 MG TABLET 4 MG PO (11:53)
--- NOTE | 2021-07-23 12:40 | PM.CNCAR ---
Assessment and Plan Assessment and plan (1) Elevated troponin: Code(s): R77.8 - Other specified abnormalities of plasma proteins Status: Acute Assessment and Plan: Unlikely related to acute plaque rupture but will repeat an EKG and trend troponins to peak. 2D echocardiogram Doppler is ordered and will be reviewed. Elevated troponin is likely secondary to underlying severe medical conditions including COVID, pneumothorax and pulmonary embolism resulting and RV strain. (2) Pulmonary embolism: Qualifiers: Acute cor pulmonale presence: unspecified Chronicity: acute Pulmonary embolism type: unspecified Qualified Code(s): I26.99 - Other pulmonary embolism without acute cor pulmonale Code(s): I26.99 - Other pulmonary embolism without acute cor pulmonale Status: Acute Assessment and Plan: RV strain noted CT scan. On heparin (3) Pneumonia due to 2019 novel coronavirus: Code(s): U07.1 - COVID-19; J12.82 - Pneumonia due to coronavirus disease 2019 Status: Acute Assessment and Plan: Receiving remdesivir other treatments per ICU (4) Acute respiratory failure with hypoxia: Code(s): J96.01 - Acute respiratory failure with hypoxia Status: Acute Assessment and Plan: Related to pneumothorax, PE and COVID (5) Pneumothorax: Qualifiers: Pneumothorax type: spontaneous, secondary Qualified Code(s): J93.12 - Secondary spontaneous pneumothorax Code(s): J93.9 - Pneumothorax, unspecified Status: Acute Assessment and Plan: Chest tube in place with resolving pneumothorax History of Present Illness History of Present Illness Consult date/time: 07/23/21 12:40 Requesting physician: Mildred Arana MD Consult reason: Other (Elevated troponin) Reason For Visit: COVID-19 Narrative: Reason for consultation: Elevated troponin Date of service 07/23/2021 Requesting provider: Dr. Arana History: Patient is a 66-year-old male who has COVID pneumonia. He was diagnosis COVID pneumonia about 2 weeks ago and he was brought to the hospital because of acute onset of severe shortness of breath. Patient was satting in the 67% range on room air. Patient was found to have a tension pneumothorax and large right pulmonary embolism with right heart strain noted. Pneumomediastinum was also noted in addition to COVID changes interstitially. As part of this workup troponins were drawn and were elevated. Cardiology consultation therefore requested. Patient denies any chest pain except for chest tube pain which is now present. Shortness of breath is as described. No recent syncope, presyncope, paroxysmal nocturnal dyspnea, orthopnea, edema or palpitations. Review of Systems Review of Systems: All systems reviewed & are unremarkable except as noted in HPI and below Constitutional: Constitutional: Reports body ache(s), Reports chills and Reports fatigue Eyes: Eyes: Denies blurry vision ENT: Reports Normal hearing present Cardiovascular: Cardiovascular: Reports chest pain Respiratory: Respiratory: Reports cough and Reports dyspnea Gastrointestinal: Gastrointestinal: Denies abdominal pain Genitourinary: Genitourinary: Denies dysuria Musculoskeletal: Musculoskeletal: Denies neck pain Integumentary/Breasts: Skin/Breast: Denies dry skin Neurologic: Denies headache(s) Psychiatric: Psychiatric: Denies anxiety Endocrine: Endocrine: Denies fatigue Hematologic/Lymphatic: Hematologic/Lymphatic: Denies easy bleeding Allergic/Immunologic: Allergic/Immunologic: Denies GI upset with certain foods PMFSH Past Medical History Medical History Patient denies significant medical history Social History Social History Smoking status: Never smoker Second hand tobacco smoke exposure: No Alcohol intake: never Substance use: never
[2021-07-23 12:45] LABS: Glucose Point of Care 146 mg/dl (65-105)
[2021-07-23 13:01] LABS: Partial Thromboplastin Time 48.2 SECONDS (22.3-36.8)
[2021-07-23] MEDS: HEPARIN SODIUM 5,000 UNITS/ML VIAL 7000 UNITS IV PUSH (13:35)
[2021-07-23] MEDS: BENZONATATE 100 MG CAPSULE 200 MG PO ×2 (13:36→22:19)
[2021-07-23] MEDS: HEPARIN SOD/D5W 100 UNITS/ML 25,000 UNITS/250 ML BAG 17 UNITS IV CONT (13:39)
[2021-07-23 13:48] LABS: Troponin I 0.656 ng/mL (0.000-0.034)
[2021-07-23 16:38] LABS: Glucose Point of Care 174 mg/dl (65-105)
[2021-07-23 18:23] LABS: Influenza Control Positive
[2021-07-23 19:26] LABS: SARS-CoV-2 RNA PCR Positive
[2021-07-23 19:57] LABS: Glucose Point of Care 136 mg/dl (65-105)
[2021-07-23 20:16] LABS: Partial Thromboplastin Time 119.7 SECONDS (22.3-36.8)
[2021-07-23] MEDS: REMDESIVIR 100 MG/NS 250 ML 100 MG/250 ML BAG 250 MG IVPB (21:30)
[2021-07-23] MEDS: HEPARIN SOD/D5W 100 UNITS/ML 25,000 UNITS/250 ML BAG 15 UNITS IV CONT (21:37)
[2021-07-24] VITALS (17 sets, daily range): BP systolic 96–127; BP diastolic 64–95; PULSE 77–110; RESP 18–30; TEMP 36.1–37.2; O2SAT 91–100
--- NOTE | 2021-07-24 | ECHO_ITS ---
Patient Info Name: Facundo Irvin Age: 66 years : 1955 Gender: Male Ht: 76 in HR: 51 bpm BP: 127 / 95 mmHg Heart Rhythm: Sinus Rhythm Technical Quality: Poor Exam Date: 07/24/2021 7:23 AM Exam Location: [facility] Patient Status: Inpatient Admit Date: 07/22/2021 Staff Ordering Physician: Mildred Arana MD Compounder Flavorings: Luz Campos RDCS Attending Provider: Mildred Arana MD Referring Physician: Sumit RODRIGUEZ; Exam Type: CA echo dop color flow w con Study Info Indications - ELEVATED TROPS Complete two-dimensional, color flow and Doppler transthoracic echocardiogram is performed with contrast to opacify the left ventricle and to improve the deliniation of the left ventricle endocardial borders. Contrast/Agitated Saline Contrast/Ag. Saline: Definity Amount: 4.00 ml Summary 1. Mild left ventricular hypertrophy with hyperdynamic systolic function. 2. Severe right ventricular enlargement with RV hypokinesis. 3. Unable to accurately estimate RV systolic pressure since there is no significant tricuspid regurgitation to be measured. 4. No significant valvular abnormality. Left Ventricle Left ventricular chamber dimension is decreased. Left ventricular systolic function is hyperdynamic, estimated at >70%. There is mild concentric increased left ventricular wall thickness. The left ventricular diastolic function is grade I diastolic dysfunction. Right Ventricle Right ventricular chamber dimension is severely enlarged. Right ventricular systolic function is reduced. Left Atria Left atrial chamber dimension is normal. Right Atria Right atrial chamber dimension is mildly enlarged. Aortic Valve The aortic valve is normal. Pulmonic Valve The pulmonic valve is normal. Mitral Valve The mitral valve has normal leaflets. Tricuspid Valve The tricuspid valve leaflets are normal. There is no tricuspid valve regurgitation. Pericardium/Pleural The pericardium appears normal. Left Ventricular Outflow Tract Name Value Normal LVOT 2D LVOT Diameter 2.53 cm LVOT Doppler LVOT Peak Gradient 2 mmHg LVOT Mean Gradient 1 mmHg LVOT VTI 14.48 cm LVOT VTI/AV VTI Ratio 1.02 LVOT Stroke Volume 72.54 ml LVOT CO 6.73 l/min Pulmonic Valve Name Value Normal PV Doppler PV Peak Gradient 2 mmHg Mitral Valve Name Value Normal MV Doppler MV Decel Stark 394.76 cm
[2021-07-24] MEDS: HEPARIN SOD/D5W 100 UNITS/ML 25,000 UNITS/250 ML BAG 15 UNITS IV CONT (02:27)
[2021-07-24] MEDS: guaiFENesin/DEXTROMETHORPHAN 10 ML UDC PO ×5 (02:29→21:44)
[2021-07-24] MEDS: ALBUTEROL SULFATE (*SP) INHALER 2 PUFF INHALATION ×5 (02:44→18:45)
[2021-07-24 04:52] LABS: Basophils Percent Auto 0.1 % (0.2-1.2); Eosinophils Absolute Auto 0.1 K/mm3 (0-0.3); Eosinophils Percent Auto 0.4 % (0-4.4); Hematocrit 41.6 % (42.0-52.0); Hemoglobin 13.7 g/dL (14.0-18.0); Immature Granulocyte Percent A 1.7 % (0-0.5); Lymphocytes Absolute Auto 1.49 K/mm3 (0.9-3.2); Lymphocytes Percent Auto 8.7 % (18.3-44.2); Mean Corpuscular HGB Conc 32.9 g/dl (32-36); Mean Corpuscular Hemoglobin 28.1 pg (26-34); Mean Corpuscular Volume 85.2 fl (80-100); Mean Platelet Volume 11.1 fl (7.4-10.4); Monocytes Absolute Auto 1.4 K/mm3 (0.1-0.6); Monocytes Percent Auto 8.2 % (2.6-8.5); Neutrophils Absolute Auto 13.9 K/mm3 (1.3-6.7); Neutrophils Percent Auto 80.9 % (45.5-73.1); Platelet Count Result 241 k/mm3 (150-375); Red Blood Count 4.88 M/mm3 (4.6-6.20); Red Cell Distribution Width 14.7 % (11.5-14.5); White Blood Count 17.2 K/mm3 (4.5-10.0)
[2021-07-24 05:00] LABS: INR 1.1; Prothrombin Time 14.2 Seconds (11.1-14.7)
[2021-07-24 05:02] LABS: Partial Thromboplastin Time 70.9 SECONDS (22.3-36.8)
[2021-07-24 05:07] LABS: Alanine Aminotransferase 109 U/L (4-50); Albumin Level 3.2 g/dL (3.5-5.1); Alkaline Phosphatase 73 U/L (38-126); Anion Gap 5 mmol/L (8-16); Aspartate Amino Transferase 64 U/L (17-59); Blood Urea Nitrogen 17 mg/dL (9-20); Calcium 8.7 mg/dL (8.4-10.2); Carbon Dioxide 29 mmol/L (22-30); Chloride 98 mmol/L (98-107); Estimated CRCL calculation 82 ml/min; Estimated Glomerular Filt Rate > 60; Glucose 131 mg/dL (65-110); Magnesium 2.3 mg/dL (1.6-2.3); Potassium 3.4 mmol/L (3.4-5.0); Sodium 132 mmol/L (137-145)
[2021-07-24] MEDS: BENZONATATE 100 MG CAPSULE 200 MG PO ×3 (05:59→21:44)
[2021-07-24] MEDS: UMECLIDINIUM BROMIDE 62.5 MCG ELLIPTA 1 PUFF INHALATION (08:41)
[2021-07-24 08:55] LABS: Glucose Point of Care 122 mg/dl (65-105)
--- NOTE | 2021-07-24 10:52 | WPDINTPN ---
Progress Note: A&P Assessment and Plan (1) Acute respiratory failure with hypoxia: Code(s): J96.01 - Acute respiratory failure with hypoxia Status: Acute Assessment and Plan: acute hypoxic respiratory failure can be multifactorial, likely due to pneumothorax, pneumomediastinum, pulmonary embolism, COVID pneumonia - CTA chest x-ray reviewed - patient has a left-sided chest tube with small left apical pneumothorax with decrease in size on chest x-ray this morning, appreciate surgery managing the chest tube -currently on high-flow nasal cannula 80% FiO2 and 60 L flow rate. O2 sats have been between 97-99%, will continue to wean FiO2 to maintain O2 sats greater than 92% - patient complaining of cough, continue guaifenesin and Tessalon Perle - continue bronchodilators (2) Pneumonia due to 2019 novel coronavirus: Code(s): U07.1 - COVID-19; J12.82 - Pneumonia due to coronavirus disease 2018 Status: Acute Assessment and Plan: COVID-19 positive on 07/13/2021: - continue remdesivir, dexamethasone -continue baricitinib (3) Pulmonary embolism: Qualifiers: Acute cor pulmonale presence: unspecified Chronicity: acute Pulmonary embolism type: unspecified Qualified Code(s): I26.99 - Other pulmonary embolism without acute cor pulmonale Code(s): I26.99 - Other pulmonary embolism without acute cor pulmonale Status: Acute Assessment and Plan: chest CTA showed large amount of right pulmonary embolism with right heart strain - patient on heparin infusion - echocardiogram has been done and pending results -appreciate cardiology evaluation and recommendation (4) Pneumothorax: Qualifiers: Pneumothorax type: spontaneous, secondary Qualified Code(s): J93.12 - Secondary spontaneous pneumothorax Code(s): J93.9 - Pneumothorax, unspecified Status: Acute Assessment and Plan: tension pneumothorax likely related to COVID pneumonia/ spontaneous tension pneumothorax causing significant amount of hypoxia - patient is hemodynamically stable - has a left-sided chest tube, surgery to monitor and manage -chest x-ray 07/24: No definitive left pneumothorax identified, diffuse lung disease consistent with COVID pneumonia, pneumomediastinum and widespread subcutaneous emphysema with slight improvement. (5) Acquired pneumomediastinum: Code(s): J98.2 - Interstitial emphysema Status: Acute Assessment and Plan: Pneumomediastinum likely related to COVID pneumonia, pneumothorax -left-sided chest tube in place -continue to monitor pneumomediastinum and subcutaneous emphysema (6) Elevated troponin: Code(s): R77.8 - Other specified abnormalities of plasma proteins Status: Acute Assessment and Plan: Likely related to large amount of pulmonary embolism with right heart strain -proBNP of 116 -cardiology has been consulted (7) Elevated lactic acid level: Code(s): R79.89 - Other specified abnormal findings of blood chemistry Status: Acute Assessment and Plan: Elevated lactic acid likely related to hypoxia -repeat lactic acid - resolved Additional Plan Discussed with patient and his Aysha, and updated with patient's condition and plan of care. Continue care as above Code status: Full code Critical care time spent: 33 minutes This dictation may have been done utilizing a voice recognition system. Attempts have been made to correct errors. However, there may be uncorrected grammatical, spelling, and recognition errors present. Due to a high probability of clinically significant, life threatening deterioration, the patient required my highest level of preparedness to intervene emergently and I personally spent this critical care time directly and personally managing the patient. This critical care time included obtaining a history; examining the patient; pulse oximetry; ordering and review of studies; arranging urgent t
[2021-07-24] MEDS: BARICITINIB 2 MG TABLET 4 MG PO (12:28)
[2021-07-24 12:46] LABS: Glucose Point of Care 122 mg/dl (65-105)
[2021-07-24 13:08] LABS: Partial Thromboplastin Time 46.9 SECONDS (22.3-36.8)
[2021-07-24 13:25] LABS: Vancomycin Trough 12.1 ug/mL (10.0-20.0)
[2021-07-24] MEDS: HEPARIN SODIUM 5,000 UNITS/ML VIAL 7000 UNITS IV PUSH (13:25)
--- NOTE | 2021-07-24 16:43 | PM.PNGS ---
Progress Note: A&P Assessment and Plan (1) Pneumothorax: Qualifiers: Pneumothorax type: spontaneous, secondary Qualified Code(s): J93.12 - Secondary spontaneous pneumothorax Code(s): J93.9 - Pneumothorax, unspecified Status: Acute Assessment and Plan: Chest x-ray this morning shows no left pneumothorax, continue chest tube to suction, repeat chest x-ray in a.m. if this continues to be true may try placing it to water seal later tomorrow. (2) Pneumonia due to 2019 novel coronavirus: Code(s): U07.1 - COVID-19; J12.82 - Pneumonia due to coronavirus disease 2019 Status: Acute Assessment and Plan: continue supportive care per loom winder tender team (3) Pulmonary embolism: Qualifiers: Acute cor pulmonale presence: unspecified Chronicity: acute Pulmonary embolism type: unspecified Qualified Code(s): I26.99 - Other pulmonary embolism without acute cor pulmonale Code(s): I26.99 - Other pulmonary embolism without acute cor pulmonale Status: Acute Assessment and Plan: continue management per loom winder tender team Subjective Subjective Date/Time Seen: 07/24/21 15:43 Patient was sitting up in bed when I talked to him from the door. He states he feels his shortness of breath is getting slightly better. He is on high-flow nasal oxygen now. I discussed his case with Dr. Freeman our loom winder tender. Review of Systems Constitutional: Constitutional: Reports fatigue and Reports malaise Eyes: Eyes: Reports no additional eye complaints Respiratory: Respiratory: Reports no additional respiratory complaints and Reports dyspnea ( If without oxygen) Exam Const: General: ill appearing, tired appearing and uncomfortable Nutritional Appearance: obese Orientation/consciousness: patient oriented x3 Limitations: no limitations HENMT: Head: normal to inspection, normocephalic and atraumatic Ears: hearing grossly normal bilaterally General nose exam: Normal external nose present Face and sinus: normal facial exam Mouth: Yes Normal oral and palatal mucosa present and Yes moist mucous membranes Neck: Neck: normal visual inspection Chest: Other: Nurse reports chest tube in same position, then this is confirmed by review of his chest x-ray. Nurse reports all tubing well connected and no air leak in the Pleur-Evac Objective Data Vital Signs Vital Signs: Vital Signs - 24 hr 07/23/21 18:23 07/23/21 20:00 07/23/21 20:43 Temperature 36.4 C L Pulse Rate 92 91 Respiratory Rate 27 H 23 H Blood Pressure 102/63 93/69 L Pulse Oximetry 95 98 100 07/23/21 22:00 07/24/21 00:00 07/24/21 02:00 Temperature 36.7 C Pulse Rate 85 78 77 Respiratory Rate 24 H 18 19 Blood Pressure 94/72 L 96/69 L 111/67 Pulse Oximetry 97 98 100 07/24/21 04:00 07/24/21 06:00 07/24/21 08:00 Temperature 36.6 C 37.1 C Pulse Rate 87 88 91 Respiratory Rate 30 H 23 H 26 H Blood Pressure 125/82 127/95 H 123/84 Pulse Oximetry 96 100 94 07/24/21 08:49 07/24/21 10:00 07/24/21 11:40 Temperature Pulse Rate 95 Respiratory Rate 28 H Blood Pressure 119/91 H Pulse Oximetry 97 95 98 07/24/21 12:00 07/24/21 13:59 07/24/21 14:00 Temperature 36.1 C L Pulse Rate 95 100 Respiratory Rate 26 H 28 H Blood Pressure 98/67 L 108/75 Pulse Oximetry 95 92 96 07/24/21 16:00 Temperature Pulse Rate 96 Respiratory Rate 20 Blood Pressure 102/77 Pulse Oximetry 99 Intake/Output Intake/Output: Intake & Output 07/21/21 07/22/21 07/23/21 07/24/21 23:59 23:59 23:59 23:59 Intake Total 2250 1690 1684 Output Total 1200 3520 1400 Balance 1050 -1830 284 Meds/Results Medications: Active Medications Generic Name Dose Route Start Last Admin Trade Name Freq PRN Reason Stop Dose Admin Acetaminophen 500 mg 07/23/21 07:30 Acetaminophen 500 Mg Tablet PO Q6H PRN Mild Pain (1-3) or Fever Albuterol 2 puff 07/23/21 04:00 07/24/21 11:36 Albuterol Sulf
[2021-07-24 18:07] LABS: Glucose Point of Care 163 mg/dl (65-105)
[2021-07-24 20:13] LABS: Partial Thromboplastin Time 146.2 SECONDS (22.3-36.8)
[2021-07-24 20:49] LABS: Glucose Point of Care 159 mg/dl (65-105)
[2021-07-24] MEDS: REMDESIVIR 100 MG/NS 250 ML 100 MG/250 ML BAG 250 MG IVPB (21:55)
[2021-07-24] MEDS: HEPARIN SOD/D5W 100 UNITS/ML 25,000 UNITS/250 ML BAG 16 UNITS IV CONT (22:42)
[2021-07-25] VITALS (18 sets, daily range): BP systolic 96–115; BP diastolic 57–74; PULSE 83–111; RESP 18–22; TEMP 36.5–36.9; O2SAT 91–100
[2021-07-25] MEDS: guaiFENesin/DEXTROMETHORPHAN 10 ML UDC PO ×6 (02:56→23:35)
[2021-07-25 05:16] LABS: Basophils Percent Auto 0.1 % (0.2-1.2); Eosinophils Absolute Auto 0.1 K/mm3 (0-0.3); Eosinophils Percent Auto 0.6 % (0-4.4); Hemoglobin 13.1 g/dL (14.0-18.0); Immature Granulocyte Absolute 0.22 K/mm3 (0.00-0.031); Immature Granulocyte Percent A 1.5 % (0-0.5); Lymphocytes Absolute Auto 1.34 K/mm3 (0.9-3.2); Lymphocytes Percent Auto 9.4 % (18.3-44.2); Mean Corpuscular HGB Conc 34.5 g/dl (32-36); Mean Corpuscular Hemoglobin 28.2 pg (26-34); Mean Corpuscular Volume 81.9 fl (80-100); Mean Platelet Volume 11.5 fl (7.4-10.4); Monocytes Absolute Auto 1.4 K/mm3 (0.1-0.6); Neutrophils Absolute Auto 11.2 K/mm3 (1.3-6.7); Neutrophils Percent Auto 78.4 % (45.5-73.1); Platelet Count Result 255 k/mm3 (150-375); Red Blood Count 4.64 M/mm3 (4.6-6.20); Red Cell Distribution Width 14.4 % (11.5-14.5); White Blood Count 14.3 K/mm3 (4.5-10.0)
[2021-07-25 05:25] LABS: INR 1.2; Prothrombin Time 15.3 Seconds (11.1-14.7)
[2021-07-25 05:27] LABS: Partial Thromboplastin Time 51.3 SECONDS (22.3-36.8)
[2021-07-25 05:43] LABS: Alanine Aminotransferase 107 U/L (4-50); Alkaline Phosphatase 74 U/L (38-126); Anion Gap 7 mmol/L (8-16); Aspartate Amino Transferase 61 U/L (17-59); Bilirubin,Total 1.1 mg/dL (0.2-1.3); Blood Urea Nitrogen 18 mg/dL (9-20); Calcium 8.4 mg/dL (8.4-10.2); Carbon Dioxide 27 mmol/L (22-30); Chloride 100 mmol/L (98-107); Estimated CRCL calculation 82 ml/min; Estimated Glomerular Filt Rate > 60; Glucose 157 mg/dL (65-110); Magnesium 2.3 mg/dL (1.6-2.3); Potassium 3.6 mmol/L (3.4-5.0); Sodium 134 mmol/L (137-145)
[2021-07-25] MEDS: BENZONATATE 100 MG CAPSULE 200 MG PO ×3 (06:24→21:34)
[2021-07-25] MEDS: HEPARIN SODIUM 5,000 UNITS/ML VIAL 7000 UNITS IV PUSH (06:24)
[2021-07-25] MEDS: UMECLIDINIUM BROMIDE 62.5 MCG ELLIPTA 1 PUFF INHALATION (08:03)
[2021-07-25] MEDS: ALBUTEROL SULFATE (*SP) INHALER 2 PUFF INHALATION ×5 (08:03→23:36)
[2021-07-25 08:47] LABS: Glucose Point of Care 127 mg/dl (65-105)
[2021-07-25] MEDS: BARICITINIB 2 MG TABLET 4 MG PO (09:03)
[2021-07-25 12:32] LABS: Glucose Point of Care 143 mg/dl (65-105)
[2021-07-25 12:37] LABS: Partial Thromboplastin Time 149.4 SECONDS (22.3-36.8)
--- NOTE | 2021-07-25 14:32 | PM.IMPN ---
Progress Note: A&P Assessment and Plan (1) Acute respiratory failure with hypoxia: Code(s): J96.01 - Acute respiratory failure with hypoxia Status: Acute Assessment and Plan: acute hypoxic respiratory failure can be multifactorial, likely due to pneumothorax, pneumomediastinum, pulmonary embolism, COVID pneumonia - CTA chest x-ray reviewed - patient has a left-sided chest tube with small left apical pneumothorax with decrease in size on chest x-ray this morning, appreciate surgery managing the chest tube -currently on high-flow nasal cannula 80% FiO2 and 60 L flow rate. O2 sats have been between 97-99%, will continue to wean FiO2 to maintain O2 sats greater than 92% - patient complaining of cough, continue guaifenesin and Tessalon Perle - continue bronchodilators 07/25/2021 Inreval History: patient admitted with acute respiratory failure hypoxic multifactorial secondary to pneumothorax, pneumomediastinum, COVID-19 and pulmonary embolism patient is now out of ICU, on IMU, today x-ray showed resolution pneumothorax patient on chest to tube seen by general surgery and further recommendation to follow, patient with COVID-19 diagnosed on July 13 being treated with dexamethasone 10/21, remdesivir 10/16 and baricitinib 10/25, patient states feeling much better compared to when he arrived, will continue present managed and further recommendation to follow. (2) Pneumonia due to 2019 novel coronavirus: Code(s): U07.1 - COVID-19; J12.82 - Pneumonia due to coronavirus disease 2019 Status: Acute Assessment and Plan: COVID-19 positive on 07/13/2021: - continue remdesivir, dexamethasone -continue baricitinib (3) Pulmonary embolism: Qualifiers: Acute cor pulmonale presence: unspecified Chronicity: acute Pulmonary embolism type: unspecified Qualified Code(s): I26.99 - Other pulmonary embolism without acute cor pulmonale Code(s): I26.99 - Other pulmonary embolism without acute cor pulmonale Status: Acute Assessment and Plan: chest CTA showed large amount of right pulmonary embolism with right heart strain - patient on heparin infusion - echocardiogram has been done and pending results -appreciate cardiology evaluation and recommendation (4) Pneumothorax: Qualifiers: Pneumothorax type: spontaneous, secondary Qualified Code(s): J93.12 - Secondary spontaneous pneumothorax Code(s): J93.9 - Pneumothorax, unspecified Status: Acute Assessment and Plan: tension pneumothorax likely related to COVID pneumonia/ spontaneous tension pneumothorax causing significant amount of hypoxia - patient is hemodynamically stable - has a left-sided chest tube, surgery to monitor and manage -chest x-ray 07/24: No definitive left pneumothorax identified, diffuse lung disease consistent with COVID pneumonia, pneumomediastinum and widespread subcutaneous emphysema with slight improvement. (5) Acquired pneumomediastinum: Code(s): J98.2 - Interstitial emphysema Status: Acute Assessment and Plan: Pneumomediastinum likely related to COVID pneumonia, pneumothorax -left-sided chest tube in place -continue to monitor pneumomediastinum and subcutaneous emphysema (6) Elevated troponin: Code(s): R77.8 - Other specified abnormalities of plasma proteins Status: Acute Assessment and Plan: Likely related to large amount of pulmonary embolism with right heart strain -proBNP of 116 -cardiology has been consulted (7) Elevated lactic acid level: Code(s): R79.89 - Other specified abnormal findings of blood chemistry Status: Acute Assessment and Plan: Elevated lactic acid likely related to hypoxia -repeat lactic acid - resolved Subjective Date/time seen: 07/25/21 14:32 07/25/2021 Inreval History: patient admitted with acute respiratory failure hypoxic multifactorial secondary to pneumothorax, pneumomediastinum, COVID-19 and pulmo
[2021-07-25] MEDS: HEPARIN SOD/D5W 100 UNITS/ML 25,000 UNITS/250 ML BAG 17 UNITS IV CONT (15:00)
--- NOTE | 2021-07-25 15:53 | PCRCNOTE ---
Window of time for administration has passed. See next scheduled administration.
[2021-07-25 17:59] LABS: Glucose Point of Care 157 mg/dl (65-105)
[2021-07-25 19:41] LABS: Partial Thromboplastin Time 78.1 SECONDS (22.3-36.8)
[2021-07-25 20:27] LABS: Glucose Point of Care 129 mg/dl (65-105)
[2021-07-25] MEDS: REMDESIVIR 100 MG/NS 250 ML 100 MG/250 ML BAG 250 MG IVPB (21:35)
--- NOTE | 2021-07-25 23:58 | PM.PNGS ---
Progress Note: A&P Assessment and Plan (1) Pneumothorax: Onset Date: ~07/2021 Qualifiers: Pneumothorax type: spontaneous, secondary Qualified Code(s): J93.12 - Secondary spontaneous pneumothorax Code(s): J93.9 - Pneumothorax, unspecified Status: Acute Assessment and Plan: Patient has moved IMU. He does not have any or leak in his Pleur-Evac. Therefore, the nurse and I checked him after removing the suction from the Pleur-Evac. Patient will not be on water seal. Lungs were clear and he was in no further distress upon removal of the suctioning. There was no air leak on either suction or on water seal. (2) Acquired pneumomediastinum: Onset Date: Unknown Code(s): J98.2 - Interstitial emphysema Status: Acute Assessment and Plan: Unknown etiology may be related to the COVID pneumonia (3) Pneumonia due to 2019 novel coronavirus: Onset Date: ~06/2021 Code(s): U07.1 - COVID-19; J12.82 - Pneumonia due to coronavirus disease 2019 Status: Acute Assessment and Plan: patient to continue treatment per protocol. Additional Plan Will get portable chest x-ray tomorrow morning with the chest tube to water seal. If no sign of recurrent pneumothorax patient may be ready for clamping trial to see if his lung will stay up with no chest tube. Time Spent With Patient Time with patient: 15 - 25 minutes Subjective Subjective Date/Time Seen: 07/25/21 09:58 Patient is sitting up in bed when I entered the room. He is ease COVID positive for of so the nurse and I were dressed in protective year. Patient does not seem short of breath on high-flow oxygen. States pain is not too bad. Cough is better. Patient had good questions regarding the chest tube. These were answered. Review of Systems Review of Systems: All systems reviewed & are unremarkable except as noted in HPI and below Constitutional: Constitutional: Reports as per HPI, Denies chills and Denies fever(s) Cardiovascular: Cardiovascular: Denies chest pain and Denies dyspnea Respiratory: Respiratory: Reports no additional respiratory complaints and Denies dyspnea Gastrointestinal: Gastrointestinal: Reports as per HPI and Denies bloating Musculoskeletal: Musculoskeletal: Reports no additional musculoskeletal complaints Neurologic: Denies memory loss Psychiatric: Psychiatric: Denies anxiety and Denies memory loss Exam Const: General: cooperative, comfortable, alert, awake and anxious Nutritional Appearance: obese Chest: Chest palpation & inspection: other Other: Normal except for site where chest tube enters. Tubing was checked. Connector was checked. Watch for bubbling over any did not have any there prior to removing suction from the Pleur-Evac or after. Resp: Auscultation: crackles ( Bilateral mid lung field) Objective Data Vital Signs Vital Signs: Vital Signs - 24 hr 07/25/21 00:00 07/25/21 02:00 07/25/21 03:50 Temperature 36.6 C Pulse Rate 88 92 93 Respiratory Rate 22 H 22 H Blood Pressure 115/58 L Pulse Oximetry 91 96 07/25/21 04:00 07/25/21 06:00 07/25/21 08:00 Temperature Pulse Rate 92 92 98 Respiratory Rate 22 H Blood Pressure Pulse Oximetry 96 96 07/25/21 08:06 07/25/21 08:51 07/25/21 10:00 Temperature 36.6 C Pulse Rate 97 111 H Respiratory Rate 20 Blood Pressure 96/74 L Pulse Oximetry 96 96 07/25/21 12:00 07/25/21 12:32 07/25/21 16:00 Temperature 36.8 C Pulse Rate 95 96 102 H Respiratory Rate 18 20 Blood Pressure 96/67 L Pulse Oximetry 96 99 98 07/25/21 16:50 07/25/21 18:00 07/25/21 20:00 Temperature 36.5 C 36.6 C Pulse Rate 102 H 95 98 Respiratory Rate 20 22 H Blood Pressure 101/67 100/57 L Pulse Oximetry 98 98 07/25/21 20:02 07/25/21 23:38 Temperature 36.9 C Pulse Rate 83 Respiratory Rate 22 H Blood Pressure 104/60 Pulse Oximetry 98 100 Intake/Output Intake/Output: Intake
[2021-07-26] VITALS (16 sets, daily range): BP systolic 94–117; BP diastolic 56–68; PULSE 83–97; RESP 16–28; TEMP 36.2–36.8; O2SAT 98–100
[2021-07-26 01:53] LABS: Partial Thromboplastin Time 149.3 SECONDS (22.3-36.8)
[2021-07-26] MEDS: guaiFENesin/DEXTROMETHORPHAN 10 ML UDC PO ×6 (02:14→23:59)
[2021-07-26] MEDS: ALBUTEROL SULFATE (*SP) INHALER 2 PUFF INHALATION ×4 (03:22→19:51)
[2021-07-26 06:34] LABS: INR 1.2; Prothrombin Time 15.4 Seconds (11.1-14.7)
[2021-07-26 06:35] LABS: Alanine Aminotransferase 113 U/L (4-50); Albumin Level 3.1 g/dL (3.5-5.1); Alkaline Phosphatase 78 U/L (38-126); Anion Gap 8 mmol/L (8-16); Aspartate Amino Transferase 59 U/L (17-59); Bilirubin,Total 1.2 mg/dL (0.2-1.3); Blood Urea Nitrogen 17 mg/dL (9-20); Calcium 8.6 mg/dL (8.4-10.2); Carbon Dioxide 28 mmol/L (22-30); Chloride 99 mmol/L (98-107); Estimated CRCL calculation 75 ml/min; Estimated Glomerular Filt Rate > 60; Glucose 117 mg/dL (65-110); Magnesium 2.4 mg/dL (1.6-2.3); Phosphorus 3.5 mg/dL (2.5-4.5); Potassium 3.8 mmol/L (3.4-5.0); Sodium 135 mmol/L (137-145)
[2021-07-26 06:42] LABS: Basophils Percent Auto 0.2 % (0.2-1.2); Eosinophils Absolute Auto 0.1 K/mm3 (0-0.3); Eosinophils Percent Auto 0.7 % (0-4.4); Hematocrit 39.7 % (42.0-52.0); Hemoglobin 13.1 g/dL (14.0-18.0); Immature Granulocyte Absolute 0.14 K/mm3 (0.00-0.031); Immature Granulocyte Percent A 1.1 % (0-0.5); Lymphocytes Absolute Auto 1.48 K/mm3 (0.9-3.2); Lymphocytes Percent Auto 11.8 % (18.3-44.2); Mean Corpuscular Hemoglobin 28.1 pg (26-34); Mean Corpuscular Volume 85.2 fl (80-100); Mean Platelet Volume 12.6 fl (7.4-10.4); Monocytes Absolute Auto 1.3 K/mm3 (0.1-0.6); Monocytes Percent Auto 10.5 % (2.6-8.5); Neutrophils Absolute Auto 9.5 K/mm3 (1.3-6.7); Neutrophils Percent Auto 75.7 % (45.5-73.1); Platelet Count Result 242 k/mm3 (150-375); Red Blood Count 4.66 M/mm3 (4.6-6.20); Red Cell Distribution Width 14.6 % (11.5-14.5); White Blood Count 12.6 K/mm3 (4.5-10.0)
[2021-07-26] MEDS: BENZONATATE 100 MG CAPSULE 200 MG PO ×3 (06:44→21:54)
[2021-07-26] MEDS: UMECLIDINIUM BROMIDE 62.5 MCG ELLIPTA 1 PUFF INHALATION (08:27)
[2021-07-26] MEDS: BARICITINIB 2 MG TABLET 4 MG PO (09:41)
[2021-07-26 10:01] LABS: Partial Thromboplastin Time 43.4 SECONDS (22.3-36.8)
[2021-07-26 10:02] LABS: Glucose Point of Care 110 mg/dl (65-105)
[2021-07-26] MEDS: HEPARIN SOD/D5W 100 UNITS/ML 25,000 UNITS/250 ML BAG 14 UNITS IV CONT (11:44)
[2021-07-26] MEDS: HEPARIN SODIUM 5,000 UNITS/ML VIAL 7000 UNITS IV PUSH (11:45)
--- NOTE | 2021-07-26 12:07 | WPDPN ---
Progress Note: A&P Assessment and Plan (1) Pneumothorax: Onset Date: ~07/2021 Qualifiers: Pneumothorax type: spontaneous, secondary Qualified Code(s): J93.12 - Secondary spontaneous pneumothorax Code(s): J93.9 - Pneumothorax, unspecified Status: Acute Assessment and Plan: s/p chest tube removal, will recheck CXR (2) Pneumonia due to 2019 novel coronavirus: Onset Date: ~06/2021 Code(s): U07.1 - COVID-19; J12.82 - Pneumonia due to coronavirus disease 2019 Status: Acute Assessment and Plan: cont supportive care, slowly improving Subjective Date/time seen: 07/26/21 12:07 Pt feels better, breathing less labored. Review of Systems Review of Systems: All systems reviewed & are unremarkable except as noted in HPI and below Exam Const: General: cooperative, comfortable and no acute distress Chest: Chest palpation & inspection: normal inspection of the chest Resp: Effort & Inspection: normal respiratory effort Auscultation: diminished lung sounds Other: L chest tube - no leak, removed at bedside Cardio: Rate: regular rate Rhythm: regular rhythm Objective Data Vital Signs Vital Signs: Vital Signs - 24 hr 07/25/21 12:32 07/25/21 16:00 07/25/21 16:50 Temperature 36.8 C 36.5 C Pulse Rate 96 102 H 102 H Respiratory Rate 18 20 20 Blood Pressure 96/67 L 101/67 Pulse Oximetry 99 98 98 07/25/21 18:00 07/25/21 20:00 07/25/21 20:02 Temperature 36.6 C Pulse Rate 95 98 Respiratory Rate 22 H Blood Pressure 100/57 L Pulse Oximetry 98 98 07/25/21 22:00 07/25/21 23:38 07/26/21 00:00 Temperature 36.9 C Pulse Rate 86 83 83 Respiratory Rate 22 H 22 H Blood Pressure 104/60 Pulse Oximetry 100 100 07/26/21 02:00 07/26/21 04:00 07/26/21 05:34 Temperature 36.5 C Pulse Rate 90 87 91 Respiratory Rate 22 H Blood Pressure 106/56 L Pulse Oximetry 100 07/26/21 08:00 07/26/21 08:28 07/26/21 10:00 Temperature 36.4 C Pulse Rate 95 91 Respiratory Rate 28 H Blood Pressure 94/68 L Pulse Oximetry 98 98 Intake/Output Intake/Output: Intake & Output 07/23/21 07/24/21 07/25/21 07/26/21 23:59 23:59 23:59 23:59 Intake Total 1690 2690 2300 800 Output Total 3520 3510 2350 930 Balance -1830 -820 -50 -130 Meds/Results Medications: Active Medications Generic Name Dose Route Start Last Admin Trade Name Freq PRN Reason Stop Dose Admin Acetaminophen 500 mg 07/23/21 07:30 Acetaminophen 500 Mg Tablet PO Q6H PRN Mild Pain (1-3) or Fever Albuterol 2 puff 07/23/21 04:00 07/26/21 08:27 Albuterol Sulfate (*Sp) Inhaler INHALATION 2 puff Q4HRT MESHA Administration Baricitinib 4 mg 07/23/21 10:15 07/26/21 09:41 Baricitinib 2 Mg Tablet PO 08/05/21 09:01 4 mg DAILY MESHA Administration Benzonatate 200 mg 07/23/21 14:00 07/26/21 11:45 Benzonatate 100 Mg Capsule PO 200 mg Q8HR MESHA Administration Dexamethasone Sodium Phosphate 6 mg 07/23/21 09:00 07/26/21 09:40 Dexamethasone Sod Phos Inj 10 Mg/Ml 1 Ml Vial IV PUSH 08/01/21 09:01 6 mg DAILY MESHA Administration Dextrose 12.5 gm 07/23/21 07:36 Dextrose 50% 25 Gm/50 Ml Syringe IV PUSH PRN PRN Hypoglycemia Protocol Glucagon 1 mg 07/23/21 07:36 Glucagon For Inj 1 Mg Vial IM PRN PRN Hypoglycemia Protocol Glucose 15 gm 07/23/21 07:36 Glucose Oral Gel 15 Gm Of Glucse In 37.5 Gm Tube PO PRN PRN Hypoglycemia Protocol Guaifenesin/Dextromethorphan 10 ml 07/23/21 11:00 07/26/21 11:45 Guaifenesin/Dextromethorphan 10 Ml Udc PO 10 ml Q4H MESHA Administration Heparin Sodium (Porcine) 7,000 units 07/22/21 19:38 07/26/21 11:45 Heparin Sodium 5,000 Units/Ml Vial IV PUSH 7,000 units PRN PRN Administration aPTT less than 55 seconds Heparin Sodium (Porcine) 3,500 units 07/22/21 19:38 Heparin Sodium 5,000 Units/Ml Vial IV PUSH PRN PRN aPTT
--- NOTE | 2021-07-26 14:26 | PM.IMPN ---
Progress Note: A&P Assessment and Plan (1) Acute respiratory failure with hypoxia: Code(s): J96.01 - Acute respiratory failure with hypoxia Status: Acute Assessment and Plan: acute hypoxic respiratory failure can be multifactorial, likely due to pneumothorax, pneumomediastinum, pulmonary embolism, COVID pneumonia - CTA chest x-ray reviewed - patient has a left-sided chest tube with small left apical pneumothorax with decrease in size on chest x-ray this morning, appreciate surgery managing the chest tube -currently on high-flow nasal cannula 80% FiO2 and 60 L flow rate. O2 sats have been between 97-99%, will continue to wean FiO2 to maintain O2 sats greater than 92% - patient complaining of cough, continue guaifenesin and Tessalon Perle - continue bronchodilators 07/25/2021 Inreval History: patient admitted with acute respiratory failure hypoxic multifactorial secondary to pneumothorax, pneumomediastinum, COVID-19 and pulmonary embolism patient is now out of ICU, on IMU, today x-ray showed resolution pneumothorax patient on chest to tube seen by general surgery and further recommendation to follow, patient with COVID-19 diagnosed on July 13 being treated with dexamethasone 3/10, remdesivir 3/5 and baricitinib 3/14, patient states feeling much better compared to when he arrived, will continue present managed and further recommendation to follow. 07/26/2021 Inreval History: patient admitted with acute respiratory failure hypoxic multifactorial secondary to pneumothorax, pneumomediastinum, COVID-19 and pulmonary embolism patient is now out of ICU, on IMU, today x-ray showed resolution pneumothorax patient on chest to tube seen by general surgery and further recommendation to follow, patient with COVID-19 diagnosed on July 13 being treated with dexamethasone 4/10, remdesivir 4/5 and baricitinib 4/14, today patient was seen by general surgeon on chest x-ray pneumothorax had resolved and the surgeon remove the chest tube, patient states feeling much better compared to when he arrived, will continue present management and further recommendation to follow. (2) Pneumonia due to 2019 novel coronavirus: Onset Date: ~06/2021 Code(s): U07.1 - COVID-19; J12.82 - Pneumonia due to coronavirus disease 2019 Status: Acute Assessment and Plan: COVID-19 positive on 07/13/2021: - continue remdesivir, dexamethasone -continue baricitinib (3) Pulmonary embolism: Qualifiers: Acute cor pulmonale presence: unspecified Chronicity: acute Pulmonary embolism type: unspecified Qualified Code(s): I26.99 - Other pulmonary embolism without acute cor pulmonale Code(s): I26.99 - Other pulmonary embolism without acute cor pulmonale Status: Acute Assessment and Plan: chest CTA showed large amount of right pulmonary embolism with right heart strain - patient on heparin infusion - echocardiogram has been done and pending results -appreciate cardiology evaluation and recommendation (4) Pneumothorax: Onset Date: ~07/2021 Qualifiers: Pneumothorax type: spontaneous, secondary Qualified Code(s): J93.12 - Secondary spontaneous pneumothorax Code(s): J93.9 - Pneumothorax, unspecified Status: Acute Assessment and Plan: tension pneumothorax likely related to COVID pneumonia/ spontaneous tension pneumothorax causing significant amount of hypoxia - patient is hemodynamically stable - has a left-sided chest tube, surgery to monitor and manage -chest x-ray 07/24: No definitive left pneumothorax identified, diffuse lung disease consistent with COVID pneumonia, pneumomediastinum and widespread subcutaneous emphysema with slight improvement. (5) Acquired pneumomediastinum: Onset Date: Unknown Code(s): J98.2 - Interstitial emphysema Status: Acute Assessment and Plan: Pneumomediastinum likely related to COVID pneumonia, pneumothorax -left-sided ches
[2021-07-26 15:12] LABS: Glucose Point of Care 162 mg/dl (65-105)
[2021-07-26 17:16] LABS: Glucose Point of Care 133 mg/dl (65-105)
[2021-07-26 19:37] LABS: Partial Thromboplastin Time 93.8 SECONDS (22.3-36.8)
[2021-07-26 20:40] LABS: Glucose Point of Care 136 mg/dl (65-105)
[2021-07-26] MEDS: REMDESIVIR 100 MG/NS 250 ML 100 MG/250 ML BAG 250 MG IVPB (21:54)
[2021-07-26] MEDS: traMADol HCL (*CRX) 50 MG TABLET PO (23:58)
[2021-07-27] VITALS (23 sets, daily range): BP systolic 103–128; BP diastolic 58–111; PULSE 78–99; RESP 20–23; TEMP 35.8–36.8; O2SAT 92–100
[2021-07-27] MEDS: ALBUTEROL SULFATE (*SP) INHALER 2 PUFF INHALATION ×6 (00:50→20:25)
[2021-07-27] MEDS: HEPARIN SOD/D5W 100 UNITS/ML 25,000 UNITS/250 ML BAG 14 UNITS IV CONT (02:06)
[2021-07-27 03:28] LABS: Partial Thromboplastin Time > 200.0 SECONDS (22.3-36.8)
[2021-07-27 05:55] LABS: Basophils Percent Auto 0.2 % (0.2-1.2); Eosinophils Absolute Auto 0.2 K/mm3 (0-0.3); Eosinophils Percent Auto 1.5 % (0-4.4); Hematocrit 39.7 % (42.0-52.0); Hemoglobin 13.1 g/dL (14.0-18.0); Immature Granulocyte Absolute 0.14 K/mm3 (0.00-0.031); Immature Granulocyte Percent A 1.1 % (0-0.5); Lymphocytes Absolute Auto 1.57 K/mm3 (0.9-3.2); Lymphocytes Percent Auto 12.3 % (18.3-44.2); Mean Corpuscular Hemoglobin 27.8 pg (26-34); Mean Corpuscular Volume 84.1 fl (80-100); Mean Platelet Volume 11.7 fl (7.4-10.4); Monocytes Absolute Auto 1.3 K/mm3 (0.1-0.6); Monocytes Percent Auto 9.9 % (2.6-8.5); Neutrophils Absolute Auto 9.6 K/mm3 (1.3-6.7); Platelet Count Result 269 k/mm3 (150-375); Red Blood Count 4.72 M/mm3 (4.6-6.20); Red Cell Distribution Width 14.4 % (11.5-14.5); White Blood Count 12.8 K/mm3 (4.5-10.0)
[2021-07-27] MEDS: BENZONATATE 100 MG CAPSULE 200 MG PO ×3 (06:12→20:38)
[2021-07-27] MEDS: guaiFENesin/DEXTROMETHORPHAN 10 ML UDC PO ×5 (06:12→23:23)
[2021-07-27 06:18] LABS: Alanine Aminotransferase 104 U/L (4-50); Albumin Level 3.1 g/dL (3.5-5.1); Alkaline Phosphatase 77 U/L (38-126); Anion Gap 7 mmol/L (8-16); Aspartate Amino Transferase 48 U/L (17-59); Bilirubin,Total 0.9 mg/dL (0.2-1.3); Blood Urea Nitrogen 18 mg/dL (9-20); Calcium 8.6 mg/dL (8.4-10.2); Carbon Dioxide 27 mmol/L (22-30); Chloride 98 mmol/L (98-107); Estimated CRCL calculation 82 ml/min; Estimated Glomerular Filt Rate > 60; Glucose 128 mg/dL (65-110); Magnesium 2.3 mg/dL (1.6-2.3); Phosphorus 3.3 mg/dL (2.5-4.5); Potassium 3.9 mmol/L (3.4-5.0); Sodium 132 mmol/L (137-145)
[2021-07-27] MEDS: BARICITINIB 2 MG TABLET 4 MG PO (08:12)
[2021-07-27] MEDS: UMECLIDINIUM BROMIDE 62.5 MCG ELLIPTA 1 PUFF INHALATION (08:17)
[2021-07-27 08:51] LABS: Glucose Point of Care 111 mg/dl (65-105)
[2021-07-27 10:11] LABS: Partial Thromboplastin Time 52.9 SECONDS (22.3-36.8)
[2021-07-27] MEDS: HEPARIN SODIUM 5,000 UNITS/ML VIAL 7000 UNITS IV PUSH (10:50)
[2021-07-27] MEDS: traMADol HCL (*CRX) 50 MG TABLET PO ×2 (11:01→20:53)
--- NOTE | 2021-07-27 11:50 | PM.IMPN ---
Progress Note: A&P Assessment and Plan (1) Acute respiratory failure with hypoxia: Code(s): J96.01 - Acute respiratory failure with hypoxia Status: Acute Assessment and Plan: Multifactorial most likely, due to pneumothorax, pneumomediastinum, pulmonary embolism, COVID pneumonia - CTA chest x-ray reviewed - patient has a left-sided chest tube with small left apical pneumothorax with decrease in size on chest x-ray this morning, appreciate surgery managing the chest tube chest tube was removed on 07/26/2021 x-ray shows resolution of pneumothorax -currently on high-flow nasal cannula - continue guaifenesin and Tessalon Perle - continue bronchodilators -.dexamethasone , remdesivir and baricitinib (2) Pneumonia due to 2019 novel coronavirus: Onset Date: ~06/2021 Code(s): U07.1 - COVID-19; J12.82 - Pneumonia due to coronavirus disease 2018 Status: Acute Assessment and Plan: COVID-19 positive on 07/13/2021: - continue remdesivir, dexamethasone -continue baricitinib (3) Pulmonary embolism: Qualifiers: Acute cor pulmonale presence: unspecified Chronicity: acute Pulmonary embolism type: unspecified Qualified Code(s): I26.99 - Other pulmonary embolism without acute cor pulmonale Code(s): I26.99 - Other pulmonary embolism without acute cor pulmonale Status: Acute Assessment and Plan: chest CTA showed large amount of right pulmonary embolism with right heart strain - patient on heparin infusion - echocardiogram -appreciate cardiology evaluation and recommendation -probably was switched to Eliquis in a.m. if no plan for cardiac procedure (4) Pneumothorax: Onset Date: ~07/2021 Qualifiers: Pneumothorax type: spontaneous, secondary Qualified Code(s): J93.12 - Secondary spontaneous pneumothorax Code(s): J93.9 - Pneumothorax, unspecified Status: Acute Assessment and Plan: tension pneumothorax likely related to COVID pneumonia/ spontaneous tension pneumothorax causing significant amount of hypoxia - patient is hemodynamically stable - has a left-sided chest tube, surgery to monitor and manage -chest x-ray 07/24: No definitive left pneumothorax identified, diffuse lung disease consistent with COVID pneumonia, pneumomediastinum and widespread subcutaneous emphysema with slight improvement. -resolved with chest tube was removed (5) Acquired pneumomediastinum: Onset Date: Unknown Code(s): J98.2 - Interstitial emphysema Status: Acute Assessment and Plan: -continue to monitor pneumomediastinum and subcutaneous emphysema (6) Elevated troponin: Code(s): R77.8 - Other specified abnormalities of plasma proteins Status: Acute Assessment and Plan: Likely related to large amount of pulmonary embolism with right heart strain -proBNP of 116 -cardiology has been consulted (7) Elevated lactic acid level: Code(s): R79.89 - Other specified abnormal findings of blood chemistry Status: Acute Assessment and Plan: Elevated lactic acid likely related to hypoxia -repeat lactic acid - resolved Subjective Date/time seen: 07/27/21 11:50 Interval history: patient admitted with acute respiratory failure hypoxic multifactorial secondary to pneumothorax, pneumomediastinum, COVID-19 and pulmonary embolism patient was transferred out of ICU, on IMU, today x-ray showed resolution pneumothorax patient on chest chest tube was removed on 07/26/21, patient with COVID-19 diagnosed on July 13 being treated with dexamethasone , remdesivir and baricitinib , patient states feeling better today tolerating Airvo Patient denies fever headache chest pain chills I am seeing the patient for. COVID-19 pneumonia Exam Narrative: Alert Chest decreased air entry bilateral positive crackles Abdomen nontender nondistended CVS S1 + S2 Lower extremity negative edema Objective Data Sobeida
[2021-07-27] MEDS: INSULIN ASPART (*BKC) 100 UNITS/ML SUB-Q (12:23)
[2021-07-27 12:27] LABS: Glucose Point of Care 201 mg/dl (65-105)
--- NOTE | 2021-07-27 12:34 | PM.PNGS ---
Progress Note: A&P Assessment and Plan (1) Pneumothorax: Onset Date: ~07/2021 Qualifiers: Pneumothorax type: spontaneous, secondary Qualified Code(s): J93.12 - Secondary spontaneous pneumothorax Code(s): J93.9 - Pneumothorax, unspecified Status: Acute Assessment and Plan: Chest tube removed on 07/26/21. CXR this morning showed no left pneumothorax. Continue supportive care. Will sign off at this time. Please let us know if there are any other surgical needs in the future. (2) Pneumonia due to 2019 novel coronavirus: Onset Date: ~06/2021 Code(s): U07.1 - COVID-19; J12.82 - Pneumonia due to coronavirus disease 2019 Status: Acute Assessment and Plan: Continue supportive care and management per Hospitalist. Additional Plan I have discussed the patient's case and plan of care with Dr. Mendoza. Subjective Subjective Date/Time Seen: 07/27/21 11:34 Patient reports: no new complaints and feels better Interval history: This is a 66-year-old male who presented with acute respiratory failure with COVID pneumonia, PE, pneumomediastinum, and left pneumothorax. Chart reviewed. Patient seen and examined in IMU today. Chest tube removed yesterday. Patient feels better today with no new complaints. Denies any worsening shortness of breath or respiratory complaints. Exam Const: General: comfortable, no acute distress, alert and awake Orientation/consciousness: patient oriented x3 Chest: Chest palpation & inspection: normal inspection of the chest Other: Left anterior chest dressing is clean, dry, and intact. Resp: Auscultation: diminished lung sounds Cardio: Rate: regular rate Rhythm: regular rhythm Skin: General skin exam: normal color Extrem: General: normal to inspection Psych: Mental Status: mental status grossly normal Insight: Good insight present (Psych) Judgement: Good judgement present (Psych) Objective Data Vital Signs Vital Signs: Vital Signs - 24 hr 07/26/21 14:00 07/26/21 16:00 07/26/21 18:00 Temperature 97.4 F L Pulse Rate 97 87 88 Respiratory Rate 16 Blood Pressure 117/58 L Pulse Oximetry 100 07/26/21 19:52 07/26/21 20:00 07/26/21 20:30 Temperature 98.2 F Pulse Rate 90 90 Respiratory Rate 22 H Blood Pressure 98/65 L Pulse Oximetry 100 98 100 07/26/21 22:00 07/26/21 23:56 07/27/21 00:00 Temperature 98.1 F Pulse Rate 90 89 88 Respiratory Rate 20 20 Blood Pressure 111/63 Pulse Oximetry 98 98 07/27/21 00:55 07/27/21 01:18 07/27/21 02:00 Temperature Pulse Rate 90 86 Respiratory Rate Blood Pressure Pulse Oximetry 99 98 07/27/21 04:00 07/27/21 04:24 07/27/21 05:00 Temperature 98.2 F Pulse Rate 78 93 Respiratory Rate 20 Blood Pressure 108/61 Pulse Oximetry 99 100 99 07/27/21 06:00 07/27/21 08:00 07/27/21 08:17 Temperature Pulse Rate 90 Respiratory Rate Blood Pressure Pulse Oximetry 92 97 07/27/21 08:53 07/27/21 09:11 07/27/21 12:28 Temperature 96.4 F L 96.7 F L Pulse Rate 87 99 Respiratory Rate 20 Blood Pressure 128/111 H 110/71 Pulse Oximetry 96 92 97 Intake/Output Intake/Output: Intake & Output 07/24/21 07/25/21 07/26/21 07/27/21 23:59 23:59 23:59 23:59 Intake Total 2690 2300 2420 1040 Output Total 3510 2350 2780 875 Balance -822 -93 -635 165 Meds/Results Medications: Active Medications Generic Name Dose Route Start Last Admin Trade Name Freq PRN Reason Stop Dose Admin Acetaminophen 500 mg 07/23/21 07:30 Acetaminophen 500 Mg Tablet PO Q6H PRN Mild Pain (1-3) or Fever Albuterol 2 puff 07/23/21 04:00 07/27/21 11:45 Albuterol Sulfate (*Sp) Inhaler INHALATION 2 puff Q4HRT MESHA Administration Baricitinib 4 mg 07/23/21 10:15 07/27/21 08:12 Baricitinib 2 Mg Tablet PO 08/05/21 09:01 4 mg DAILY MESHA Administration Benzonatate 200 mg 07/23/21 14:00 07/27/21 10:51 Benzonatate 100 Mg Cap
[2021-07-27 16:27] LABS: Glucose Point of Care 163 mg/dl (65-105)
[2021-07-27 17:39] LABS: Partial Thromboplastin Time 182.2 SECONDS (22.3-36.8)
[2021-07-27] MEDS: HEPARIN SOD/D5W 100 UNITS/ML 25,000 UNITS/250 ML BAG 16 UNITS IV CONT (20:37)
[2021-07-27 21:02] LABS: Glucose Point of Care 143 mg/dl (65-105)
[2021-07-28] VITALS (20 sets, daily range): BP systolic 92–128; BP diastolic 61–96; PULSE 74–96; RESP 18–22; TEMP 36.4–36.9; O2SAT 95–98
[2021-07-28] MEDS: ALBUTEROL SULFATE (*SP) INHALER 2 PUFF INHALATION ×6 (00:01→20:00)
[2021-07-28] MEDS: guaiFENesin/DEXTROMETHORPHAN 10 ML UDC PO ×5 (02:33→20:22)
[2021-07-28] MEDS: BENZONATATE 100 MG CAPSULE 200 MG PO ×3 (06:18→20:22)
[2021-07-28] MEDS: UMECLIDINIUM BROMIDE 62.5 MCG ELLIPTA 1 PUFF INHALATION (08:27)
[2021-07-28 08:39] LABS: Glucose Point of Care 121 mg/dl (65-105)
[2021-07-28 08:59] LABS: Basophils Percent Auto 0.2 % (0.2-1.2); Eosinophils Absolute Auto 0.3 K/mm3 (0-0.3); Eosinophils Percent Auto 2.4 % (0-4.4); Hematocrit 40.5 % (42.0-52.0); Hemoglobin 13.3 g/dL (14.0-18.0); Immature Granulocyte Absolute 0.18 K/mm3 (0.00-0.031); Immature Granulocyte Percent A 1.4 % (0-0.5); Lymphocytes Absolute Auto 1.52 K/mm3 (0.9-3.2); Lymphocytes Percent Auto 11.8 % (18.3-44.2); Mean Corpuscular HGB Conc 32.8 g/dl (32-36); Mean Corpuscular Hemoglobin 28.2 pg (26-34); Mean Corpuscular Volume 85.8 fl (80-100); Mean Platelet Volume 11.6 fl (7.4-10.4); Monocytes Absolute Auto 1.1 K/mm3 (0.1-0.6); Monocytes Percent Auto 8.8 % (2.6-8.5); Neutrophils Absolute Auto 9.7 K/mm3 (1.3-6.7); Neutrophils Percent Auto 75.4 % (45.5-73.1); Platelet Count Result 270 k/mm3 (150-375); Red Blood Count 4.72 M/mm3 (4.6-6.20); Red Cell Distribution Width 14.6 % (11.5-14.5); White Blood Count 12.9 K/mm3 (4.5-10.0)
[2021-07-28] MEDS: BARICITINIB 2 MG TABLET 4 MG PO (09:09)
[2021-07-28 09:10] LABS: Partial Thromboplastin Time 81.2 SECONDS (22.3-36.8)
[2021-07-28] MEDS: traMADol HCL (*CRX) 50 MG TABLET PO (09:17)
[2021-07-28] MEDS: HEPARIN SOD/D5W 100 UNITS/ML 25,000 UNITS/250 ML BAG 16 UNITS IV CONT (09:18)
[2021-07-28 09:24] LABS: Alanine Aminotransferase 104 U/L (4-50); Albumin Level 3.2 g/dL (3.5-5.1); Alkaline Phosphatase 82 U/L (38-126); Anion Gap 7 mmol/L (8-16); Aspartate Amino Transferase 56 U/L (17-59); Bilirubin,Total 1.1 mg/dL (0.2-1.3); Blood Urea Nitrogen 19 mg/dL (9-20); Calcium 8.8 mg/dL (8.4-10.2); Carbon Dioxide 30 mmol/L (22-30); Chloride 95 mmol/L (98-107); Estimated CRCL calculation 75 ml/min; Estimated Glomerular Filt Rate > 60; Glucose 116 mg/dL (65-110); Magnesium 2.3 mg/dL (1.6-2.3); Phosphorus 3.4 mg/dL (2.5-4.5); Potassium 4.1 mmol/L (3.4-5.0); Sodium 132 mmol/L (137-145)
[2021-07-28 09:39] LABS: Vancomycin Trough 22.3 ug/mL (10.0-20.0)
--- NOTE | 2021-07-28 11:08 | PM.IMPN ---
Progress Note: A&P Assessment and Plan (1) Acute respiratory failure with hypoxia: Code(s): J96.01 - Acute respiratory failure with hypoxia Status: Acute Assessment and Plan: Multifactorial most likely, due to pneumothorax, pneumomediastinum, pulmonary embolism, COVID pneumonia - CTA chest x-ray reviewed - patient has a left-sided chest tube with small left apical pneumothorax with decrease in size on chest x-ray this morning, appreciate surgery managing the chest tube chest tube was removed on 07/26/2021 x-ray shows resolution of pneumothorax -currently on high-flow nasal cannula - continue guaifenesin and Tessalon Perle - continue bronchodilators -.dexamethasone , remdesivir and baricitinib (2) Pneumonia due to 2019 novel coronavirus: Onset Date: ~06/2021 Code(s): U07.1 - COVID-19; J12.82 - Pneumonia due to coronavirus disease 2019 Status: Acute Assessment and Plan: COVID-19 positive on 07/13/2021: -completed remdesivir, continue dexamethasone -continue baricitinib (3) Pulmonary embolism: Qualifiers: Acute cor pulmonale presence: unspecified Chronicity: acute Pulmonary embolism type: unspecified Qualified Code(s): I26.99 - Other pulmonary embolism without acute cor pulmonale Code(s): I26.99 - Other pulmonary embolism without acute cor pulmonale Status: Acute Assessment and Plan: chest CTA showed large amount of right pulmonary embolism with right heart strain -treated with heparin infusion - echocardiogram -appreciate cardiology evaluation and recommendation -DC heparin drip on 07/28/2021 started on Eliquis 07/28/2021 plan for Eliquis 10 mg twice a day for 7 days then 5 mg twice a day for 3-6 months (4) Pneumothorax: Onset Date: ~07/2021 Qualifiers: Pneumothorax type: spontaneous, secondary Qualified Code(s): J93.12 - Secondary spontaneous pneumothorax Code(s): J93.9 - Pneumothorax, unspecified Status: Acute Assessment and Plan: tension pneumothorax likely related to COVID pneumonia/ spontaneous tension pneumothorax causing significant amount of hypoxia - patient is hemodynamically stable - has a left-sided chest tube, surgery to monitor and manage -chest x-ray 07/24: No definitive left pneumothorax identified, diffuse lung disease consistent with COVID pneumonia, pneumomediastinum and widespread subcutaneous emphysema with slight improvement. -resolved with chest tube was removed (5) Acquired pneumomediastinum: Onset Date: Unknown Code(s): J98.2 - Interstitial emphysema Status: Acute Assessment and Plan: -continue to monitor pneumomediastinum and subcutaneous emphysema (6) Elevated troponin: Code(s): R77.8 - Other specified abnormalities of plasma proteins Status: Acute Assessment and Plan: Likely related to large amount of pulmonary embolism with right heart strain -proBNP of 116 -cardiology has been consulted (7) Elevated lactic acid level: Code(s): R79.89 - Other specified abnormal findings of blood chemistry Status: Acute Assessment and Plan: Elevated lactic acid likely related to hypoxia -repeat lactic acid - resolved Additional Plan Patient was treated with empiric antibiotics patient completed 5 days of vancomycin and cefepime Probably patient has secondary bacterial infection completed antibiotic monitor off antibiotics antibiotic was discontinued on 07/28/2021 Plan for discharge once oxygen requirement as 3-4 L or less Subjective Date/time seen: 07/28/21 11:08 Interval history: patient admitted with acute respiratory failure hypoxic multifactorial secondary to pneumothorax, pneumomediastinum, COVID-19 and pulmonary embolism patient was transferred out of ICU, on IMU, today x-ray showed resolution pneumothorax patient on chest chest tube was removed on 07/26/21, patient with COVID-19 diagnosed on July 13 being treated
[2021-07-28 12:14] LABS: Glucose Point of Care 158 mg/dl (65-105)
[2021-07-28] MEDS: APIXABAN 5 MG TABLET 10 MG PO ×2 (12:31→20:23)
[2021-07-28 17:09] LABS: Glucose Point of Care 160 mg/dl (65-105)
[2021-07-28 20:57] LABS: Glucose Point of Care 176 mg/dl (65-105)
[2021-07-29] VITALS (20 sets, daily range): BP systolic 96–110; BP diastolic 62–76; PULSE 68–102; RESP 14–22; TEMP 36.3–36.8; O2SAT 93–99
[2021-07-29] MEDS: guaiFENesin/DEXTROMETHORPHAN 10 ML UDC PO ×7 (00:01→23:10)
[2021-07-29] MEDS: ALBUTEROL SULFATE (*SP) INHALER 2 PUFF INHALATION ×4 (01:28→17:01)
[2021-07-29] MEDS: traMADol HCL (*CRX) 50 MG TABLET PO (03:32)
[2021-07-29] MEDS: BENZONATATE 100 MG CAPSULE 200 MG PO ×3 (05:45→20:35)
--- NOTE | 2021-07-29 08:21 | PCNWS ---
Weekly nutritional screen. Patient is tolerating current diet with adequate intake. No weight loss reported. No nutritional needs at this time.
[2021-07-29] MEDS: UMECLIDINIUM BROMIDE 62.5 MCG ELLIPTA 1 PUFF INHALATION (08:22)
[2021-07-29 09:02] LABS: Glucose Point of Care 118 mg/dl (65-105)
[2021-07-29] MEDS: BARICITINIB 2 MG TABLET 4 MG PO (09:05)
[2021-07-29] MEDS: APIXABAN 5 MG TABLET 10 MG PO ×2 (09:05→20:35)
[2021-07-29 09:25] LABS: Basophils Percent Auto 0.3 % (0.2-1.2); Eosinophils Absolute Auto 0.3 K/mm3 (0-0.3); Eosinophils Percent Auto 2.6 % (0-4.4); Hematocrit 38.9 % (42.0-52.0); Hemoglobin 12.8 g/dL (14.0-18.0); Immature Granulocyte Absolute 0.16 K/mm3 (0.00-0.031); Immature Granulocyte Percent A 1.3 % (0-0.5); Lymphocytes Absolute Auto 1.82 K/mm3 (0.9-3.2); Lymphocytes Percent Auto 14.8 % (18.3-44.2); Mean Corpuscular HGB Conc 32.9 g/dl (32-36); Mean Corpuscular Hemoglobin 27.6 pg (26-34); Mean Platelet Volume 11.7 fl (7.4-10.4); Monocytes Absolute Auto 1.1 K/mm3 (0.1-0.6); Monocytes Percent Auto 8.9 % (2.6-8.5); Neutrophils Absolute Auto 8.8 K/mm3 (1.3-6.7); Neutrophils Percent Auto 72.1 % (45.5-73.1); Platelet Count Result 273 k/mm3 (150-375); Red Blood Count 4.63 M/mm3 (4.6-6.20); Red Cell Distribution Width 14.6 % (11.5-14.5); White Blood Count 12.3 K/mm3 (4.5-10.0)
[2021-07-29 09:41] LABS: Alanine Aminotransferase 116 U/L (4-50); Albumin Level 3.5 g/dL (3.5-5.1); Alkaline Phosphatase 79 U/L (38-126); Anion Gap 2 mmol/L (8-16); Aspartate Amino Transferase 59 U/L (17-59); Bilirubin,Total 0.9 mg/dL (0.2-1.3); Blood Urea Nitrogen 22 mg/dL (9-20); Calcium 9.2 mg/dL (8.4-10.2); Carbon Dioxide 30 mmol/L (22-30); Chloride 98 mmol/L (98-107); Estimated CRCL calculation 82 ml/min; Estimated Glomerular Filt Rate > 60; Glucose 106 mg/dL (65-110); Magnesium 2.4 mg/dL (1.6-2.3); Phosphorus 3.6 mg/dL (2.5-4.5); Potassium 4.4 mmol/L (3.4-5.0); Sodium 130 mmol/L (137-145)
[2021-07-29 12:24] LABS: Glucose Point of Care 194 mg/dl (65-105)
--- NOTE | 2021-07-29 15:09 | PM.IMPN ---
Progress Note: A&P Assessment and Plan (1) Acute respiratory failure with hypoxia: Code(s): J96.01 - Acute respiratory failure with hypoxia Status: Acute Assessment and Plan: Multifactorial most likely, due to pneumothorax, pneumomediastinum, pulmonary embolism, COVID pneumonia - CTA chest x-ray reviewed - patient has a left-sided chest tube with small left apical pneumothorax with decrease in size on chest x-ray this morning, appreciate surgery managing the chest tube chest tube was removed on 07/26/2021 x-ray shows resolution of pneumothorax - pt is on steroids now (2) Pneumonia due to 2019 novel coronavirus: Onset Date: ~06/2021 Code(s): U07.1 - COVID-19; J12.82 - Pneumonia due to coronavirus disease 2019 Status: Acute Assessment and Plan: COVID-19 positive on 07/13/2021: -completed remdesivir, continue dexamethasone (3) Pulmonary embolism: Qualifiers: Acute cor pulmonale presence: unspecified Chronicity: acute Pulmonary embolism type: unspecified Qualified Code(s): I26.99 - Other pulmonary embolism without acute cor pulmonale Code(s): I26.99 - Other pulmonary embolism without acute cor pulmonale Status: Acute Assessment and Plan: chest CTA showed large amount of right pulmonary embolism with right heart strain -treated with heparin infusion - echocardiogram -appreciate cardiology evaluation and recommendation -DC heparin drip on 07/28/2021 started on Eliquis 07/28/2021 plan for Eliquis 10 mg twice a day for 7 days then 5 mg twice a day for 3-6 months (4) Pneumothorax: Onset Date: ~07/2021 Qualifiers: Pneumothorax type: spontaneous, secondary Qualified Code(s): J93.12 - Secondary spontaneous pneumothorax Code(s): J93.9 - Pneumothorax, unspecified Status: Acute Assessment and Plan: tension pneumothorax likely related to COVID pneumonia/ spontaneous tension pneumothorax causing significant amount of hypoxia - patient is hemodynamically stable - has a left-sided chest tube, surgery to monitor and manage -chest x-ray 07/24: No definitive left pneumothorax identified, diffuse lung disease consistent with COVID pneumonia, pneumomediastinum and widespread subcutaneous emphysema with slight improvement. -resolved with chest tube was removed (5) Acquired pneumomediastinum: Onset Date: Unknown Code(s): J98.2 - Interstitial emphysema Status: Acute Assessment and Plan: -continue to monitor pneumomediastinum and subcutaneous emphysema (6) Elevated troponin: Code(s): R77.8 - Other specified abnormalities of plasma proteins Status: Acute Assessment and Plan: Likely related to large amount of pulmonary embolism with right heart strain pt seen by cardiology (7) Elevated lactic acid level: Code(s): R79.89 - Other specified abnormal findings of blood chemistry Status: Acute Assessment and Plan: Elevated lactic acid likely related to hypoxia Subjective Date/time seen: 07/29/21 15:09 Interval history: 66 year old patient admitted with acute respiratory failure hypoxic multifactorial secondary to pneumothorax, pneumomediastinum, COVID-19 and pulmonary embolism patient was transferred out of ICU, on IMU, today x-ray showed resolution pneumothorax patient on chest chest tube was removed on 07/26/21, patient with COVID-19 diagnosed on July 13 being treated with dexamethasone , remdesivir and baricitinib , patient states feeling better today tolerating Airvo I DC the heparin drip on 07/28/2021 I started Eliquis on 07/28/2021 plan for 10 mg p.o. twice a day for 7 days then 5 mg twice a day Pt is lying on his side pt is on high low oxygen presently comfortable no specific concerns pt currently on oxygen and steroids Review of Systems Review of Systems: All systems reviewed & are unremarkable except as noted in HPI and below Exam Narrative:
[2021-07-29 16:33] LABS: Glucose Point of Care 126 mg/dl (65-105)
[2021-07-29 20:27] LABS: Glucose Point of Care 147 mg/dl (65-105)
--- NOTE | 2021-07-29 22:38 | PCRCNOTE ---
Window of time for administration has passed. See next scheduled administration.
[2021-07-30] VITALS (18 sets, daily range): BP systolic 97–146; BP diastolic 58–92; PULSE 61–88; RESP 18–20; TEMP 36.1–36.6; O2SAT 9–100
[2021-07-30] MEDS: ALBUTEROL SULFATE (*SP) INHALER 2 PUFF INHALATION ×6 (00:05→21:08)
[2021-07-30] MEDS: guaiFENesin/DEXTROMETHORPHAN 10 ML UDC PO ×5 (03:45→19:29)
[2021-07-30 04:48] LABS: Basophils Percent Auto 0.1 % (0.2-1.2); Eosinophils Absolute Auto 0.1 K/mm3 (0-0.3); Eosinophils Percent Auto 0.9 % (0-4.4); Hematocrit 40.4 % (42.0-52.0); Hemoglobin 13.2 g/dL (14.0-18.0); Immature Granulocyte Absolute 0.13 K/mm3 (0.00-0.031); Immature Granulocyte Percent A 1.1 % (0-0.5); Lymphocytes Absolute Auto 1.19 K/mm3 (0.9-3.2); Lymphocytes Percent Auto 10.4 % (18.3-44.2); Mean Corpuscular HGB Conc 32.7 g/dl (32-36); Mean Corpuscular Volume 85.8 fl (80-100); Mean Platelet Volume 12.2 fl (7.4-10.4); Monocytes Absolute Auto 0.9 K/mm3 (0.1-0.6); Monocytes Percent Auto 7.4 % (2.6-8.5); Neutrophils Absolute Auto 9.2 K/mm3 (1.3-6.7); Neutrophils Percent Auto 80.1 % (45.5-73.1); Platelet Count Result 276 k/mm3 (150-375); Red Blood Count 4.71 M/mm3 (4.6-6.20); Red Cell Distribution Width 14.6 % (11.5-14.5); White Blood Count 11.5 K/mm3 (4.5-10.0)
[2021-07-30 05:01] LABS: Alanine Aminotransferase 122 U/L (4-50); Albumin Level 3.5 g/dL (3.5-5.1); Alkaline Phosphatase 82 U/L (38-126); Anion Gap 1 mmol/L (8-16); Aspartate Amino Transferase 61 U/L (17-59); Bilirubin,Total 0.8 mg/dL (0.2-1.3); Blood Urea Nitrogen 22 mg/dL (9-20); Calcium 9.2 mg/dL (8.4-10.2); Carbon Dioxide 34 mmol/L (22-30); Chloride 95 mmol/L (98-107); Estimated CRCL calculation 90 ml/min; Estimated Glomerular Filt Rate > 60; Glucose 112 mg/dL (65-110); Potassium 3.9 mmol/L (3.4-5.0); Sodium 130 mmol/L (137-145)
[2021-07-30] MEDS: BENZONATATE 100 MG CAPSULE 200 MG PO ×3 (06:14→22:03)
[2021-07-30 08:06] LABS: Glucose Point of Care 109 mg/dl (65-105)
[2021-07-30] MEDS: BARICITINIB 2 MG TABLET 4 MG PO (09:44)
[2021-07-30] MEDS: APIXABAN 5 MG TABLET 10 MG PO ×2 (09:44→22:03)
[2021-07-30] MEDS: UMECLIDINIUM BROMIDE 62.5 MCG ELLIPTA 1 PUFF INHALATION (10:07)
--- NOTE | 2021-07-30 11:14 | PM.IMPN ---
Progress Note: A&P Assessment and Plan (1) Acute respiratory failure with hypoxia: Code(s): J96.01 - Acute respiratory failure with hypoxia Status: Acute Assessment and Plan: Multifactorial most likely, due to pneumothorax, pneumomediastinum, pulmonary embolism, COVID pneumonia - CTA chest x-ray reviewed - patient has a left-sided chest tube with small left apical pneumothorax with decrease in size on chest x-ray this morning, appreciate surgery managing the chest tube chest tube was removed on 07/26/2021 x-ray shows resolution of pneumothorax -currently on high-flow nasal cannula - continue guaifenesin and Tessalon Perle - continue bronchodilators -.dexamethasone , remdesivir and baricitinib Better today (2) Pneumonia due to 2019 novel coronavirus: Onset Date: ~06/2021 Code(s): U07.1 - COVID-19; J12.82 - Pneumonia due to coronavirus disease 2018 Status: Acute Assessment and Plan: COVID-19 positive on 07/13/2021: -completed remdesivir, continue dexamethasone -continue baricitinib (3) Pulmonary embolism: Qualifiers: Acute cor pulmonale presence: unspecified Chronicity: acute Pulmonary embolism type: unspecified Qualified Code(s): I26.99 - Other pulmonary embolism without acute cor pulmonale Code(s): I26.99 - Other pulmonary embolism without acute cor pulmonale Status: Acute Assessment and Plan: chest CTA showed large amount of right pulmonary embolism with right heart strain -treated with heparin infusion - echocardiogram -appreciate cardiology evaluation and recommendation -DC heparin drip on 07/28/2021 started on Eliquis 07/28/2021 plan for Eliquis 10 mg twice a day for 7 days then 5 mg twice a day for 3-6 months (4) Pneumothorax: Onset Date: ~07/2021 Qualifiers: Pneumothorax type: spontaneous, secondary Qualified Code(s): J93.12 - Secondary spontaneous pneumothorax Code(s): J93.9 - Pneumothorax, unspecified Status: Acute Assessment and Plan: tension pneumothorax likely related to COVID pneumonia/ spontaneous tension pneumothorax causing significant amount of hypoxia - patient is hemodynamically stable - has a left-sided chest tube, surgery to monitor and manage -chest x-ray 07/24: No definitive left pneumothorax identified, diffuse lung disease consistent with COVID pneumonia, pneumomediastinum and widespread subcutaneous emphysema with slight improvement. -resolved with chest tube was removed (5) Acquired pneumomediastinum: Onset Date: Unknown Code(s): J98.2 - Interstitial emphysema Status: Acute Assessment and Plan: -continue to monitor pneumomediastinum and subcutaneous emphysema (6) Elevated troponin: Code(s): R77.8 - Other specified abnormalities of plasma proteins Status: Acute Assessment and Plan: Likely related to large amount of pulmonary embolism with right heart strain -proBNP of 116 -cardiology has been consulted (7) Elevated lactic acid level: Code(s): R79.89 - Other specified abnormal findings of blood chemistry Status: Acute Assessment and Plan: Elevated lactic acid likely related to hypoxia -repeat lactic acid - resolved Subjective Date/time seen: 07/30/21 11:14 Interval history: patient admitted with acute respiratory failure hypoxic multifactorial secondary to pneumothorax, pneumomediastinum, COVID-19 and pulmonary embolism patient was transferred out of ICU, on IMU, today x-ray showed resolution pneumothorax patient on chest chest tube was removed on 07/26/21, patient with COVID-19 diagnosed on July 13 being treated with dexamethasone , remdesivir and baricitinib , patient states feeling better today tolerating Airvo I DC the heparin drip on 07/28/2021 I started Eliquis on 07/28/2021 plan for 10 mg p.o. twice a day for 7 days then 5 mg twice a day thereafter probably patient will need 3-6 months of treat
[2021-07-30 12:04] LABS: Glucose Point of Care 135 mg/dl (65-105)
[2021-07-30 16:46] LABS: Glucose Point of Care 126 mg/dl (65-105)
[2021-07-30 22:12] LABS: Glucose Point of Care 125 mg/dl (65-105)
[2021-07-31] VITALS (17 sets, daily range): BP systolic 94–100; BP diastolic 57–74; PULSE 68–99; RESP 16–21; TEMP 36.2–37.1; O2SAT 93–99
[2021-07-31] MEDS: guaiFENesin/DEXTROMETHORPHAN 10 ML UDC PO ×7 (00:09→23:41)
--- NOTE | 2021-07-31 03:06 | PCRCNOTE ---
Window of time for administration has passed. See next scheduled administration.
[2021-07-31] MEDS: ALBUTEROL SULFATE (*SP) INHALER 2 PUFF INHALATION ×6 (03:22→23:17)
[2021-07-31 05:42] LABS: Alanine Aminotransferase 134 U/L (4-50); Albumin Level 3.4 g/dL (3.5-5.1); Alkaline Phosphatase 83 U/L (38-126); Anion Gap 5 mmol/L (8-16); Aspartate Amino Transferase 63 U/L (17-59); Bilirubin,Total 0.9 mg/dL (0.2-1.3); Blood Urea Nitrogen 25 mg/dL (9-20); Calcium 9.1 mg/dL (8.4-10.2); Carbon Dioxide 29 mmol/L (22-30); Chloride 97 mmol/L (98-107); Estimated CRCL calculation 75 ml/min; Estimated Glomerular Filt Rate > 60; Glucose 106 mg/dL (65-110); Potassium 4.1 mmol/L (3.4-5.0); Sodium 131 mmol/L (137-145)
[2021-07-31 05:48] LABS: Basophils Percent Auto 0.2 % (0.2-1.2); Eosinophils Absolute Auto 0.1 K/mm3 (0-0.3); Hematocrit 35.9 % (42.0-52.0); Hemoglobin 11.7 g/dL (14.0-18.0); Immature Granulocyte Absolute 0.13 K/mm3 (0.00-0.031); Immature Granulocyte Percent A 0.9 % (0-0.5); Lymphocytes Absolute Auto 1.43 K/mm3 (0.9-3.2); Lymphocytes Percent Auto 10.1 % (18.3-44.2); Mean Corpuscular HGB Conc 32.6 g/dl (32-36); Mean Corpuscular Hemoglobin 27.9 pg (26-34); Mean Corpuscular Volume 85.5 fl (80-100); Monocytes Percent Auto 6.9 % (2.6-8.5); Neutrophils Absolute Auto 11.4 K/mm3 (1.3-6.7); Neutrophils Percent Auto 80.9 % (45.5-73.1); Platelet Count Result 187 k/mm3 (150-375); Red Cell Distribution Width 15.1 % (11.5-14.5); White Blood Count 14.1 K/mm3 (4.5-10.0)
[2021-07-31] MEDS: BENZONATATE 100 MG CAPSULE 200 MG PO ×3 (06:26→21:20)
[2021-07-31 08:39] LABS: Glucose Point of Care 116 mg/dl (65-105)
[2021-07-31] MEDS: UMECLIDINIUM BROMIDE 62.5 MCG ELLIPTA 1 PUFF INHALATION (08:41)
[2021-07-31] MEDS: APIXABAN 5 MG TABLET 10 MG PO ×2 (09:36→21:21)
[2021-07-31] MEDS: BARICITINIB 2 MG TABLET 4 MG PO (09:36)
--- NOTE | 2021-07-31 10:30 | PM.IMPN ---
Progress Note: A&P Assessment and Plan (1) Acute respiratory failure with hypoxia: Code(s): J96.01 - Acute respiratory failure with hypoxia Status: Acute Assessment and Plan: Multifactorial most likely, due to pneumothorax, pneumomediastinum, pulmonary embolism, COVID pneumonia - CTA chest x-ray reviewed - patient has a left-sided chest tube with small left apical pneumothorax with decrease in size on chest x-ray this morning, appreciate surgery managing the chest tube chest tube was removed on 07/26/2021 x-ray shows resolution of pneumothorax -currently on high-flow nasal cannula - continue guaifenesin and Tessalon Perle - continue bronchodilators -.dexamethasone , remdesivir and baricitinib Better today (2) Pneumonia due to 2019 novel coronavirus: Onset Date: ~06/2021 Code(s): U07.1 - COVID-19; J12.82 - Pneumonia due to coronavirus disease 2019 Status: Acute Assessment and Plan: COVID-19 positive on 07/13/2021: -completed remdesivir, continue dexamethasone -continue baricitinib -complicated by bacterial pneumonia treated with IV antibiotics patient has leukocytosis repeat procalcitonin and CRP (3) Pulmonary embolism: Qualifiers: Acute cor pulmonale presence: unspecified Chronicity: acute Pulmonary embolism type: unspecified Qualified Code(s): I26.99 - Other pulmonary embolism without acute cor pulmonale Code(s): I26.99 - Other pulmonary embolism without acute cor pulmonale Status: Acute Assessment and Plan: chest CTA showed large amount of right pulmonary embolism with right heart strain -treated with heparin infusion - echocardiogram -appreciate cardiology evaluation and recommendation -DC heparin drip on 07/28/2021 started on Eliquis 07/28/2021 plan for Eliquis 10 mg twice a day for 7 days then 5 mg twice a day for 3-6 months (4) Pneumothorax: Onset Date: ~07/2021 Qualifiers: Pneumothorax type: spontaneous, secondary Qualified Code(s): J93.12 - Secondary spontaneous pneumothorax Code(s): J93.9 - Pneumothorax, unspecified Status: Acute Assessment and Plan: tension pneumothorax likely related to COVID pneumonia/ spontaneous tension pneumothorax causing significant amount of hypoxia - patient is hemodynamically stable - has a left-sided chest tube, surgery to monitor and manage -chest x-ray 07/24: No definitive left pneumothorax identified, diffuse lung disease consistent with COVID pneumonia, pneumomediastinum and widespread subcutaneous emphysema with slight improvement. -resolved with chest tube was removed (5) Acquired pneumomediastinum: Onset Date: Unknown Code(s): J98.2 - Interstitial emphysema Status: Acute Assessment and Plan: -continue to monitor pneumomediastinum and subcutaneous emphysema (6) Elevated troponin: Code(s): R77.8 - Other specified abnormalities of plasma proteins Status: Acute Assessment and Plan: Likely related to large amount of pulmonary embolism with right heart strain -proBNP of 116 -cardiology has been consulted (7) Elevated lactic acid level: Code(s): R79.89 - Other specified abnormal findings of blood chemistry Status: Acute Assessment and Plan: Elevated lactic acid likely related to hypoxia -repeat lactic acid - resolved Additional Plan [id number] start midodrine I do not think patient has worsening infection his oxygenation is improved follow CRP and procalcitonin if needed can give normal saline bolus Subjective Date/time seen: 07/31/21 10:30 Interval history: patient admitted with acute respiratory failure hypoxic multifactorial secondary to pneumothorax, pneumomediastinum, COVID-19 and pulmonary embolism patient was transferred out of ICU, on IMU, today x-ray showed resolution pneumothorax patient on chest chest tube was removed on 07/26/21, patient with COVID-19 diagnosed on July 13 being t
[2021-07-31 11:34] LABS: CRP 5.4 mg/dL (<1.0)
[2021-07-31] MEDS: MIDODRINE HCL 2.5 MG TABLET 5 MG PO ×2 (13:17→17:48)
[2021-07-31 13:27] LABS: Glucose Point of Care 151 mg/dl (65-105)
[2021-07-31 16:44] LABS: Glucose Point of Care 130 mg/dl (65-105)
[2021-07-31 22:36] LABS: Glucose Point of Care 126 mg/dl (65-105)
--- NOTE | 2021-07-31 23:33 | PC.NURSE ---
This patient, Facundo Irvin, was transferred to [[facility] ] on 07/31/21 at 2246. Personal belongings sent with patient. Report given to [Tony ]. Appropriate documentation sent with patient.
[2021-08-01] VITALS (12 sets, daily range): BP systolic 92–99; BP diastolic 57–62; PULSE 67–82; RESP 16–18; TEMP 36–36.6; O2SAT 92–97
[2021-08-01] MEDS: ALBUTEROL SULFATE (*SP) INHALER 2 PUFF INHALATION ×4 (02:19→20:37)
[2021-08-01] MEDS: guaiFENesin/DEXTROMETHORPHAN 10 ML UDC PO ×6 (03:56→22:22)
[2021-08-01] MEDS: BENZONATATE 100 MG CAPSULE 200 MG PO ×3 (06:45→21:08)
[2021-08-01 07:50] LABS: Basophils Percent Auto 0.2 % (0.2-1.2); Eosinophils Absolute Auto 0.2 K/mm3 (0-0.3); Eosinophils Percent Auto 1.5 % (0-4.4); Hemoglobin 12.4 g/dL (14.0-18.0); Immature Granulocyte Absolute 0.11 K/mm3 (0.00-0.031); Immature Granulocyte Percent A 0.9 % (0-0.5); Lymphocytes Absolute Auto 1.35 K/mm3 (0.9-3.2); Lymphocytes Percent Auto 10.5 % (18.3-44.2); Mean Corpuscular HGB Conc 32.6 g/dl (32-36); Mean Corpuscular Hemoglobin 27.7 pg (26-34); Mean Platelet Volume 12.4 fl (7.4-10.4); Monocytes Absolute Auto 0.9 K/mm3 (0.1-0.6); Monocytes Percent Auto 7.3 % (2.6-8.5); Neutrophils Absolute Auto 10.2 K/mm3 (1.3-6.7); Neutrophils Percent Auto 79.6 % (45.5-73.1); Platelet Count Result 286 k/mm3 (150-375); Red Blood Count 4.47 M/mm3 (4.6-6.20); Red Cell Distribution Width 14.7 % (11.5-14.5); White Blood Count 12.8 K/mm3 (4.5-10.0)
[2021-08-01] MEDS: UMECLIDINIUM BROMIDE 62.5 MCG ELLIPTA 1 PUFF INHALATION (08:01)
[2021-08-01 08:09] LABS: Alanine Aminotransferase 137 U/L (4-50); Albumin Level 3.3 g/dL (3.5-5.1); Alkaline Phosphatase 89 U/L (38-126); Anion Gap 6 mmol/L (8-16); Aspartate Amino Transferase 63 U/L (17-59); Blood Urea Nitrogen 23 mg/dL (9-20); Calcium 9.3 mg/dL (8.4-10.2); Carbon Dioxide 28 mmol/L (22-30); Chloride 98 mmol/L (98-107); Estimated CRCL calculation 73 ml/min; Estimated Glomerular Filt Rate > 60; Glucose 101 mg/dL (65-110); Potassium 3.9 mmol/L (3.4-5.0); Sodium 132 mmol/L (137-145)
[2021-08-01 08:21] LABS: Glucose Point of Care 97 mg/dl (65-105)
[2021-08-01] MEDS: BARICITINIB 2 MG TABLET 4 MG PO (08:28)
[2021-08-01] MEDS: MIDODRINE HCL 2.5 MG TABLET 5 MG PO ×3 (08:29→17:20)
[2021-08-01] MEDS: APIXABAN 5 MG TABLET 10 MG PO ×2 (08:29→21:08)
--- NOTE | 2021-08-01 09:16 | PM.IMPN ---
Progress Note: A&P Assessment and Plan (1) Acute respiratory failure with hypoxia: Code(s): J96.01 - Acute respiratory failure with hypoxia Status: Acute Assessment and Plan: Multifactorial most likely, due to pneumothorax, pneumomediastinum, pulmonary embolism, COVID pneumonia - CTA chest x-ray reviewed - patient has a left-sided chest tube with small left apical pneumothorax with decrease in size on chest x-ray this morning, appreciate surgery managing the chest tube chest tube was removed on 07/26/2021 x-ray shows resolution of pneumothorax -currently on high-flow nasal cannula - continue guaifenesin and Tessalon Perle - continue bronchodilators -.dexamethasone , remdesivir and baricitinib Better today (2) Pneumonia due to 2019 novel coronavirus: Onset Date: ~06/2021 Code(s): U07.1 - COVID-19; J12.82 - Pneumonia due to coronavirus disease 2019 Status: Acute Assessment and Plan: COVID-19 positive on 07/13/2021: -completed remdesivir, continue dexamethasone -continue baricitinib -complicated by bacterial pneumonia treated with IV antibiotics patient has leukocytosis repeat procalcitonin and CRP (3) Pulmonary embolism: Qualifiers: Acute cor pulmonale presence: unspecified Chronicity: acute Pulmonary embolism type: unspecified Qualified Code(s): I26.99 - Other pulmonary embolism without acute cor pulmonale Code(s): I26.99 - Other pulmonary embolism without acute cor pulmonale Status: Acute Assessment and Plan: chest CTA showed large amount of right pulmonary embolism with right heart strain -treated with heparin infusion - echocardiogram -appreciate cardiology evaluation and recommendation -DC heparin drip on 07/28/2021 started on Eliquis 07/28/2021 plan for Eliquis 10 mg twice a day for 7 days then 5 mg twice a day for 3-6 months (4) Pneumothorax: Onset Date: ~07/2021 Qualifiers: Pneumothorax type: spontaneous, secondary Qualified Code(s): J93.12 - Secondary spontaneous pneumothorax Code(s): J93.9 - Pneumothorax, unspecified Status: Acute Assessment and Plan: tension pneumothorax likely related to COVID pneumonia/ spontaneous tension pneumothorax causing significant amount of hypoxia - patient is hemodynamically stable - has a left-sided chest tube, surgery to monitor and manage -chest x-ray 07/24: No definitive left pneumothorax identified, diffuse lung disease consistent with COVID pneumonia, pneumomediastinum and widespread subcutaneous emphysema with slight improvement. -resolved with chest tube was removed (5) Acquired pneumomediastinum: Onset Date: Unknown Code(s): J98.2 - Interstitial emphysema Status: Acute Assessment and Plan: -continue to monitor pneumomediastinum and subcutaneous emphysema (6) Elevated troponin: Code(s): R77.8 - Other specified abnormalities of plasma proteins Status: Acute Assessment and Plan: Likely related to large amount of pulmonary embolism with right heart strain -cardiology has been consulted follow-up with cardiology as outpatient (7) Elevated lactic acid level: Code(s): R79.89 - Other specified abnormal findings of blood chemistry Status: Acute Assessment and Plan: Elevated lactic acid likely related to hypoxia -repeat lactic acid - resolved Subjective Date/time seen: 08/01/21 09:16 Interval history: patient admitted with acute respiratory failure hypoxic multifactorial secondary to pneumothorax, pneumomediastinum, COVID-19 and pulmonary embolism patient was transferred out of ICU, on IMU, today x-ray showed resolution pneumothorax patient on chest chest tube was removed on 07/26/21, patient with COVID-19 diagnosed on July 13 being treated with dexamethasone , remdesivir and baricitinib , patient states feeling better today tolerating Airvo I DC the heparin drip on 07/28/2021 I started E
[2021-08-01 12:28] LABS: Glucose Point of Care 130 mg/dl (65-105)
--- NOTE | 2021-08-01 14:36 | PCRCNOTE ---
Window of time for administration has passed. See next scheduled administration.
[2021-08-01 16:50] LABS: Glucose Point of Care 135 mg/dl (65-105)
[2021-08-01 22:27] LABS: Glucose Point of Care 131 mg/dl (65-105)
[2021-08-02] VITALS (9 sets, daily range): BP systolic 93–118; BP diastolic 58–72; PULSE 68–84; RESP 15–18; TEMP 35.8–36.7; O2SAT 91–97
[2021-08-02] MEDS: ALBUTEROL SULFATE (*SP) INHALER 2 PUFF INHALATION ×5 (00:05→21:33)
[2021-08-02] MEDS: guaiFENesin/DEXTROMETHORPHAN 10 ML UDC PO ×6 (02:49→21:39)
[2021-08-02] MEDS: BENZONATATE 100 MG CAPSULE 200 MG PO ×3 (05:58→21:39)
[2021-08-02 06:15] LABS: Alanine Aminotransferase 134 U/L (4-50); Albumin Level 3.6 g/dL (3.5-5.1); Alkaline Phosphatase 90 U/L (38-126); Anion Gap 5 mmol/L (8-16); Aspartate Amino Transferase 56 U/L (17-59); Bilirubin,Total 0.9 mg/dL (0.2-1.3); Blood Urea Nitrogen 22 mg/dL (9-20); Calcium 9.2 mg/dL (8.4-10.2); Carbon Dioxide 27 mmol/L (22-30); Chloride 98 mmol/L (98-107); Estimated CRCL calculation 73 ml/min; Estimated Glomerular Filt Rate > 60; Glucose 100 mg/dL (65-110); Potassium 3.8 mmol/L (3.4-5.0); Sodium 130 mmol/L (137-145)
[2021-08-02 06:21] LABS: Basophils Percent Auto 0.2 % (0.2-1.2); Eosinophils Absolute Auto 0.3 K/mm3 (0-0.3); Eosinophils Percent Auto 2.3 % (0-4.4); Hematocrit 40.1 % (42.0-52.0); Hemoglobin 12.8 g/dL (14.0-18.0); Immature Granulocyte Absolute 0.11 K/mm3 (0.00-0.031); Lymphocytes Absolute Auto 1.38 K/mm3 (0.9-3.2); Lymphocytes Percent Auto 12.9 % (18.3-44.2); Mean Corpuscular HGB Conc 31.9 g/dl (32-36); Mean Corpuscular Hemoglobin 28.5 pg (26-34); Mean Corpuscular Volume 89.3 fl (80-100); Mean Platelet Volume 12.2 fl (7.4-10.4); Monocytes Absolute Auto 0.8 K/mm3 (0.1-0.6); Monocytes Percent Auto 7.4 % (2.6-8.5); Neutrophils Absolute Auto 8.2 K/mm3 (1.3-6.7); Neutrophils Percent Auto 76.2 % (45.5-73.1); Platelet Count Result 229 k/mm3 (150-375); Red Blood Count 4.49 M/mm3 (4.6-6.20); Red Cell Distribution Width 15.3 % (11.5-14.5); White Blood Count 10.7 K/mm3 (4.5-10.0)
[2021-08-02 08:15] LABS: Glucose Point of Care 97 mg/dl (65-105)
[2021-08-02] MEDS: UMECLIDINIUM BROMIDE 62.5 MCG ELLIPTA 1 PUFF INHALATION (08:53)
[2021-08-02] MEDS: BARICITINIB 2 MG TABLET 4 MG PO (09:24)
[2021-08-02] MEDS: MIDODRINE HCL 2.5 MG TABLET 5 MG PO ×3 (09:25→16:55)
[2021-08-02] MEDS: APIXABAN 5 MG TABLET 10 MG PO ×2 (09:25→21:39)
[2021-08-02 11:38] LABS: Glucose Point of Care 113 mg/dl (65-105)
--- NOTE | 2021-08-02 14:58 | PM.IMPN ---
Progress Note: A&P Assessment and Plan (1) Acute respiratory failure with hypoxia: Code(s): J96.01 - Acute respiratory failure with hypoxia Status: Acute Assessment and Plan: Improved acute respiratory failure with hypoxia. Patient is relatively asymptomatic at rest. Reports shortness of breath with mild exertion. Home oxygen evaluation. Multifactorial most likely, due to pneumothorax, pneumomediastinum, pulmonary embolism, COVID pneumonia - CTA chest x-ray reviewed - patient has a left-sided chest tube with small left apical pneumothorax with decrease in size on chest x-ray this morning, appreciate surgery managing the chest tube chest tube was removed on 07/26/2021 x-ray shows resolution of pneumothorax -currently on high-flow nasal cannula - continue guaifenesin and Tessalon Perle - continue bronchodilators -dexamethasone, remdesivir and baricitinib (2) Pneumonia due to 2019 novel coronavirus: Onset Date: ~06/2021 Code(s): U07.1 - COVID-19; J12.82 - Pneumonia due to coronavirus disease 2019 Status: Acute Assessment and Plan: COVID-19 positive on 07/13/2021: -completed remdesivir, continue dexamethasone -continue baricitinib -complicated by bacterial pneumonia treated with IV antibiotics patient has leukocytosis repeat procalcitonin and CRP (3) Pulmonary embolism: Qualifiers: Acute cor pulmonale presence: unspecified Chronicity: acute Pulmonary embolism type: unspecified Qualified Code(s): I26.99 - Other pulmonary embolism without acute cor pulmonale Code(s): I26.99 - Other pulmonary embolism without acute cor pulmonale Status: Acute Assessment and Plan: chest CTA showed large amount of right pulmonary embolism with right heart strain -treated with heparin infusion - echocardiogram -[facility] cardiology evaluation and recommendation -DC heparin drip on 07/28/2021 started on Eliquis 07/28/2021 plan for Eliquis 10 mg twice a day for 7 days then 5 mg twice a day for 6 months (4) Pneumothorax: Onset Date: ~07/2021 Qualifiers: Pneumothorax type: spontaneous, secondary Qualified Code(s): J93.12 - Secondary spontaneous pneumothorax Code(s): J93.9 - Pneumothorax, unspecified Status: Acute Assessment and Plan: tension pneumothorax likely related to COVID pneumonia/ spontaneous tension pneumothorax causing significant amount of hypoxia - patient is hemodynamically stable - has a left-sided chest tube, surgery to monitor and manage -chest x-ray 07/24: No definitive left pneumothorax identified, diffuse lung disease consistent with COVID pneumonia, pneumomediastinum and widespread subcutaneous emphysema with slight improvement. -resolved with chest tube was removed (5) Acquired pneumomediastinum: Onset Date: Unknown Code(s): J98.2 - Interstitial emphysema Status: Acute Assessment and Plan: -continue to monitor pneumomediastinum and subcutaneous emphysema (6) Elevated troponin: Code(s): R77.8 - Other specified abnormalities of plasma proteins Status: Acute Assessment and Plan: Likely related to large amount of pulmonary embolism with right heart strain -cardiology has been consulted follow-up with cardiology as outpatient (7) Elevated lactic acid level: Code(s): R79.89 - Other specified abnormal findings of blood chemistry Status: Acute Assessment and Plan: Elevated lactic acid likely related to hypoxia -repeat lactic acid - resolved Additional Plan Hypotension start midodrine I do not think patient has worsening infection his oxygenation is improved follow CRP and procalcitonin if needed can give normal saline bolus Subjective Date/time seen: 08/02/21 13:30 S: Patient examined at the bedside. He is comfortable at rest. Review of Systems Review of Systems: All systems reviewed & are unremarkable except as noted in HPI and below Constitutional:
--- NOTE | 2021-08-02 15:48 | PM.PNCARD ---
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 There is nothing I can do specifically to resolve his RV systolic dysfunction other than recommend treating the underlying problems which you are already doing. It is reasonable from my perspective to use the midodrine if hypotension has become an issue. His chest x-ray shows significant pulmonary injury related to the COVID pneumonitis. That being the case I doubt his RV function is going to normalize. If you have other specific cardiac questions regarding this please let me know. 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 We saw this patient in consultation early on in the hospitalization but as there were no active cardiac problems did not continue to follow him. Echocardiogram done shortly after admission demonstrated some relatively severe right ventricular enlargement and RV systolic dysfunction. Patient is started now on midodrine for hypotension. Current blood pressures are acceptable he is ambulating with rehab and not experiencing symptoms of lightheadedness. Long discussion with the patient about his RV systolic dysfunction in the room today. Exam Const: General: comfortable and no acute distress Other: Well-developed well-nourished white male appearing his stated age he is tall has nasal cannula oxygen in place no distress. HENMT: Mouth: Yes moist mucous membranes Eyes: Sclera: sclerae normal Pupils: Equal, round and reactive pupils present Neck: Neck: supple and no JVD Other: Carotid upstrokes are normal bilaterally Resp: Effort & Inspection: normal respiratory effort Other: breath sounds are remarkably clear in both lung [place] Cardio: Rate: regular rate Rhythm: regular rhythm Other: no murmur no gallop no rub GI: GI Palp: Yes Soft to palpation Auscultation: normal bowel sounds Skin: General skin exam: normal color Neuro: Cognition (Neuro): normal cognition Extrem: Other: no edema at this time Objective Data Vital Signs Vital Signs: Vital Signs - 24 hr 08/01/21 16:00 08/01/21 20:00 08/01/21 20:40 Temperature 36.4 C 36.0 C L Pulse Rate 76 82 Respiratory Rate 16 18 Blood Pressure 92/57 L 94/61 L Pulse Oximetry 94 95 95 08/02/21 00:00 08/02/21 04:00 08/02/21 08:00 Temperature 35.8 C L 35.8 C L 36.4 C Pulse Rate 68 72 76 Respiratory Rate 18 18 16 Blood Pressure 103/59 L 95/59 L 101/61 Pulse Oximetry 94 94 96 08/02/21 08:54 08/02/21 12:00 Temperature 36.4 C L Pulse Rate 71 Respiratory Rate 15 Blood Pressure 118/72 Pulse Oximetry 96 95 Intake/Output Intake/Output: Intake & Output 07/30/21 07/31/21 08/01/21 08/02/21 23:59 23:59 23:59 23:59 Intake Total 2200 1590 2040 882 Output Total 3000 1100 1600 800 Balance -800 490 440 82 Meds/Results Medications: Active Medications Generic Name Dose Route Start Last Admin Trade Name Freq PRN Reason Stop Dose Admin Acetaminophen 500 mg 07/23/21 07:30 Acetaminophen 500 Mg Tablet PO Q6H PRN Mild Pain (1-3) or Fever Albuterol 2 puff 07/23/21 04:00 08/02/21 12:35 Albuterol Sulfate (*Sp) Inhaler INHALATION 2 puff Q4HRT MESHA Administration Apixaban 10 mg 07/28/21 11:10 08/02/21 09:25 Apixaban 5 Mg Tablet PO 08/03/21 21:01 10 mg Q12HR MESHA Administration Apixaban 5 mg 08/04/21 09:00 Apixaban 5 Mg Tablet PO Q12HR [facility] Baricitinib
[2021-08-02 16:40] LABS: Glucose Point of Care 117 mg/dl (65-105)
--- NOTE | 2021-08-02 17:18 | PCDIET ---
Nutrition follow up. Unable to visit with pt due to following covid precautions. Spoke to Truman LAKHANI via phone who reports that pt has had significant weight loss associated with covid. MD requested pt to receive double portions of heart healthy diet. Per EMR, pt is on a heart healthy diet, carb consistent diet, and dietary supplement of ensure enlive providing and additional 350kcal and 20g of protein. Per EMR, reported intake is 100/%. Agree with current diet orders. Diet office has been notified to add double portions of heart healthy diet. Will continue to follow every 7 days.
[2021-08-02 22:02] LABS: Glucose Point of Care 103 mg/dl (65-105)
[2021-08-03] VITALS (8 sets, daily range): BP systolic 95–104; BP diastolic 64–70; PULSE 71–89; RESP 16; TEMP 36.2–36.8; O2SAT 87–97
[2021-08-03] MEDS: ALBUTEROL SULFATE (*SP) INHALER 2 PUFF INHALATION ×3 (01:22→08:10)
[2021-08-03] MEDS: guaiFENesin/DEXTROMETHORPHAN 10 ML UDC PO ×2 (03:31→06:31)
[2021-08-03 06:01] LABS: Basophils Absolute Auto 0.1 K/mm3 (0.0-0.1); Basophils Percent Auto 0.8 % (0.2-1.2); Eosinophils Absolute Auto 0.4 K/mm3 (0-0.3); Eosinophils Percent Auto 5.5 % (0-4.4); Hematocrit 43.6 % (42.0-52.0); Hemoglobin 13.4 g/dL (14.0-18.0); Immature Granulocyte Absolute 0.09 K/mm3 (0.00-0.031); Immature Granulocyte Percent A 1.2 % (0-0.5); Lymphocytes Absolute Auto 1.37 K/mm3 (0.9-3.2); Lymphocytes Percent Auto 18.5 % (18.3-44.2); Mean Corpuscular HGB Conc 30.7 g/dl (32-36); Mean Corpuscular Hemoglobin 28.2 pg (26-34); Mean Corpuscular Volume 91.6 fl (80-100); Mean Platelet Volume 12.7 fl (7.4-10.4); Monocytes Absolute Auto 0.6 K/mm3 (0.1-0.6); Neutrophils Absolute Auto 4.9 K/mm3 (1.3-6.7); Platelet Count Result 179 k/mm3 (150-375); Red Blood Count 4.76 M/mm3 (4.6-6.20); Red Cell Distribution Width 15.6 % (11.5-14.5); White Blood Count 7.4 K/mm3 (4.5-10.0)
[2021-08-03] MEDS: BENZONATATE 100 MG CAPSULE 200 MG PO ×2 (06:31→13:24)
[2021-08-03 06:35] LABS: Alanine Aminotransferase 119 U/L (4-50); Albumin Level 3.6 g/dL (3.5-5.1); Alkaline Phosphatase 88 U/L (38-126); Anion Gap 6 mmol/L (8-16); Aspartate Amino Transferase 50 U/L (17-59); Blood Urea Nitrogen 22 mg/dL (9-20); CRP 3.5 mg/dL (<1.0); Calcium 9.2 mg/dL (8.4-10.2); Carbon Dioxide 24 mmol/L (22-30); Chloride 98 mmol/L (98-107); Estimated CRCL calculation 66 ml/min; Estimated Glomerular Filt Rate > 60; Glucose 97 mg/dL (65-110); Lactate Dehydrogenase 773 U/L (313-618); Potassium 4.1 mmol/L (3.4-5.0); Sodium 128 mmol/L (137-145)
[2021-08-03] MEDS: BARICITINIB 2 MG TABLET 4 MG PO (07:58)
[2021-08-03] MEDS: APIXABAN 5 MG TABLET 10 MG PO (07:59)
[2021-08-03] MEDS: UMECLIDINIUM BROMIDE 62.5 MCG ELLIPTA 1 PUFF INHALATION (08:10)
[2021-08-03 08:37] LABS: Glucose Point of Care 115 mg/dl (65-105)
[2021-08-03 10:21] LABS: Ferritin > 2000.00 ng/mL (11.1-264)
--- NOTE | 2021-08-03 11:50 | HOMEO2EVAL ---
Evaluation was performed at [facility] Home Oxygen Evaluation RC: Home Oxygen (O2) Evaluation Start: 08/02/21 14:53 Freq: ONCE Status: Active Protocol: RPE Activity Type Activity Date Activity User E-Sign Co-Sign Detail Recorded Client Recorded Date Recorded By Document 08/03/21 11:00 TEQUILA [email or web address] 08/03/21 11:50 TEQUILA Document 08/03/21 11:05 TEQUILA [email or web address] 08/03/21 11:50 TEQUILA Document 08/03/21 11:06 TEQUILA [email or web address] 08/03/21 11:50 TEQUILA Document 08/03/21 11:15 TEQUILA [email or web address] 08/03/21 11:50 TEQUILA 08/03/21 08/03/21 08/03/21 11:00 11:05 11:06 Home O2 Evaluation Test Phase Resting Exercise Exercise Oxygen Delivery Room Air Room Air Nasal Cannula Oxygen Flow Rate (L/min) 1 Pulse Oximetry (90-100 %) 93 87 L 90 Home Oxygen Evaluation Comments Home O2 at 1 L with activity Treatment Charges O2 Evaluation - Inpatient 08/03/21 11:15 Home O2 Evaluation Test Phase Resting Oxygen Delivery Room Air Oxygen Flow Rate (L/min) Pulse Oximetry (90-100 %) 93 Home Oxygen Evaluation Comments Treatment Charges
--- NOTE | 2021-08-03 11:50 | PCRCNOTE ---
Home O2 required at 1 L with activity. Pt has home O2 with [facility]. Pt has portable tank sand concentrator. to bring tank for transport home.
[2021-08-03 11:53] LABS: Glucose Point of Care 118 mg/dl (65-105)
--- NOTE | 2021-08-03 14:06 | PM.DS ---
DS: Admitting Diagnosis Discharge Date 08/03/2021 Admitting Diagnosis (1) Pulmonary embolism: (2) Pneumothorax: (3) Acquired pneumomediastinum: (4) Lung infiltrate on CT: (5) Pneumonia due to 2019 novel coronavirus: (6) Leukocytosis (leucocytosis): (7) Tachycardia: (8) Hypoxia: (9) Tachypnea: (10) Elevated troponin: (11) Elevated lactic acid level: DS: Discharge Diagnosis Discharge Diagnosis (1) Acute respiratory failure with hypoxia: Code(s): J96.01 - Acute respiratory failure with hypoxia Status: Acute Assessment and Plan: Improved acute respiratory failure with hypoxia. Patient is relatively asymptomatic at rest. Reports shortness of breath with mild exertion. Home oxygen evaluation. Multifactorial most likely, due to pneumothorax, pneumomediastinum, pulmonary embolism, COVID pneumonia - CTA chest x-ray reviewed - patient has a left-sided chest tube with small left apical pneumothorax with decrease in size on chest x-ray this morning, appreciate surgery managing the chest tube chest tube was removed on 07/26/2021 x-ray shows resolution of pneumothorax -currently on high-flow nasal cannula - continue guaifenesin and Tessalon Perle - continue bronchodilators -dexamethasone, remdesivir and baricitinib (2) Pneumonia due to 2019 novel coronavirus: Onset Date: ~06/2021 Code(s): U07.1 - COVID-19; J12.82 - Pneumonia due to coronavirus disease 2019 Status: Acute Assessment and Plan: COVID-19 positive on 07/13/2021: -completed remdesivir, continue dexamethasone -continue baricitinib -complicated by bacterial pneumonia treated with IV antibiotics patient has leukocytosis repeat procalcitonin and CRP (3) Pulmonary embolism: Qualifiers: Acute cor pulmonale presence: unspecified Chronicity: acute Pulmonary embolism type: unspecified Qualified Code(s): I26.99 - Other pulmonary embolism without acute cor pulmonale Code(s): I26.99 - Other pulmonary embolism without acute cor pulmonale Status: Acute Assessment and Plan: chest CTA showed large amount of right pulmonary embolism with right heart strain -treated with heparin infusion - echocardiogram -appreciate cardiology evaluation and recommendation -DC heparin drip on 07/28/2021 started on Eliquis 07/28/2021 plan for Eliquis 10 mg twice a day for 7 days then 5 mg twice a day for 6 months (4) Pneumothorax: Onset Date: ~07/2021 Qualifiers: Pneumothorax type: spontaneous, secondary Qualified Code(s): J93.12 - Secondary spontaneous pneumothorax Code(s): J93.9 - Pneumothorax, unspecified Status: Acute Assessment and Plan: tension pneumothorax likely related to COVID pneumonia/ spontaneous tension pneumothorax causing significant amount of hypoxia - patient is hemodynamically stable - has a left-sided chest tube, surgery to monitor and manage -chest x-ray 07/24: No definitive left pneumothorax identified, diffuse lung disease consistent with COVID pneumonia, pneumomediastinum and widespread subcutaneous emphysema with slight improvement. -resolved with chest tube was removed (5) Acquired pneumomediastinum: Onset Date: Unknown Code(s): J98.2 - Interstitial emphysema Status: Acute Assessment and Plan: -continue to monitor pneumomediastinum and subcutaneous emphysema (6) Elevated troponin: Code(s): R77.8 - Other specified abnormalities of plasma proteins Status: Acute Assessment and Plan: Likely related to large amount of pulmonary embolism with right heart strain -cardiology has been consulted follow-up with cardiology as outpatient (7) Elevated lactic acid level: Code(s): R79.89 - Other specified abnormal findings of blood chemistry Status: Acute Assessment and Plan: Elevated lactic acid likely related to hypoxia -repeat lactic acid - resolved (8) Hypotension: Code(s): I95.9 - Hypot
== END 2021-08-03 15:49 | disposition home or self-care (01) | DRG 177 ==
LOC: ANHED 20:51 → ANHICU 07-23 11:09 → ANHIMU 07-29 12:38 → ANH3MEDSUR 08-01 15:53 → ANHICU 08-04 11:23 → ANHIMU 08-04 11:23
PROVIDERS: Family Medicine; Internal Medicine; Internal Medicine Cardiovascular Disease; Nurse Practitioner; Physician Assistant; Admitting Provider Internal Medicine; Emergency Provider Emergency Medicine; PCP Internal Medicine; Visit Provider Internal Medicine
DX: U07.1 COVID-19 (principal); I26.99 Other pulmonary embolism without acute cor pulmonale; J93.0 Spontaneous tension pneumothorax; I21.A1 Myocardial infarction type 2; J96.01 Acute respiratory failure with hypoxia; J12.82 Pneumonia due to coronavirus disease 2019; J15.9 Unspecified bacterial pneumonia; J93.12 Secondary spontaneous pneumothorax; J98.2 Interstitial emphysema; R79.89 Other specified abnormal findings of blood chemistry; I95.9 Hypotension, unspecified
CPT/HCPCS: 36415; 36600; 71045; 71275; 80053; 80202; 81001; 82565; 82728; 82805; 82948; 83605; 83615; 83735; 83880; 84100; 84145; 84450; 84460; 84484; 85025; 85610; 85730; 86140; 87040; 87086; 87804; 93005; 94002; 94003; 94618; 94640; 96361; 96365; 96375; 97110; 97161; 97530; 99285; A9270; C1729; C8929; C9803; J1100; J1644; J1815; J2543; J3370; J7030; Q9957; Q9967; U0003; U0005